=== PATIENT | female | born 1995 | race Caucasian/White ===

== ENCOUNTER 2018-10-17 20:47 | Emergency (ER) | payer BC ==
--- NOTE | 2018-10-17 21:14 | ERPHSYRPT ---
- History of Present Illness Time Seen by Provider: 10/17/18 21:07 Source: patient Exam Limitations: no limitations Patient Subjective Stated Complaint: pt states she has had temp of 99.6 today at home, cough and sore throat Triage Nursing Assessment: pt alert and oriented, asnwers questions approp. pt ambulatoryw ith steady gait ntoed. respriations nonlabored with lungs cta. skin pink warm and dry. Physician History: 23-year-old white female previously healthy who states that she is 8 weeks arrives with complaint of fever sore throat cough symptoms since this morning. She states she had some vomiting earlier which resolved. She is not short of breath has no chest pain no belly pain no other complaints. Past medical history is negative. Past surgical history negative. Timing/Duration: today Severity: mild Modifying Factors: Improves With: nothing Associated Symptoms: nausea, vomiting (what), No abdominal pain, No shortness of breath, No heartburn, No diaphoresis, No cough, No chills, No chest pain, No fever, No headaches, No loss of appetite, No malaise, No rash, No syncope, No seizure, No weakness Allergies/Adverse Reactions: No Known Drug Allergies Allergy (Verified 10/17/18 21:04) Hx Tetanus, Diphtheria Vaccination/Date Given: Yes Hx Influenza Vaccination/Date Given: No Hx Pneumococcal Vaccination/Date Given: No Immunizations Up to Date: Yes - Review of Systems Constitutional: Fever, No Chills Eyes: No Symptoms (he refused any treatment) Ears, Nose, & Throat: No Symptoms, Throat Pain, No Ear Pain, No Ear Discharge, No Hearing Changes, No Tinnitus, No Nose Pain, No Nose Congestion, No Nose Discharge, No Sinus Drainage, No Epistaxis, No Mouth Pain, No Mouth Swelling, No Loose Teeth, No Throat Swelling, No Hoarse, No Painful Swallowing, No Snoring , No Stridor Respiratory: Cough, No Cyanosis, No Dyspnea, No Dyspnea on Exertion (TUCKER), No Stridor, No Wheezing Cardiac: No Chest Pain, No Edema, No Syncope Abdominal/Gastrointestinal: Nausea, Vomiting, No Abdominal Pain, No Diarrhea, No Constipation, No Hematemesis, No Hematochezia, No Melena, No Dysphagia, No Appetite Changes Genitourinary Symptoms: No Dysuria Musculoskeletal: No Back Pain, No Neck Pain Skin: No Rash Neurological: No Dizziness, No Focal Weakness, No Sensory Changes Psychological: No Symptoms Endocrine: No Symptoms All Other Systems: Reviewed and Negative (the second liter for him) - Past Medical History Pertinent Past Medical History: No - Past Surgical History Past Surgical History: Yes Female Surgical History: Dilation & Curettage - Social History Smoking Status: Never smoker Exposure to second hand smoke: Yes Drug Use: none Patient Lives Alone: No - Female History Hx Last Menstrual Period: 08/21/18 Hx Now: Yes Gestational Age: 6 wks - Nursing Vital Signs Nursing Vital Signs: Initial Vital Signs Temperature 99.6 F 10/17/18 20:57 Pulse Rate 123 H 10/17/18 20:57 Respiratory Rate 18 10/17/18 20:57 Blood Pressure 131/83 10/17/18 20:57 O2 Sat by Pulse Oximetry 97 10/17/18 20:57 Pain Scale Pain Intensity 3 - Physical Exam General Appearance: no apparent distress, alert Eye Exam: PERRL/EOMI, eyes nml inspection Ears, Nose, Throat Exam: normal ENT inspection, TMs normal, pharynx normal, moist mucous membranes Neck Exam: normal inspection, non-tender, supple, full range of motion Respiratory Exam: normal breath sounds, lungs clear, No respiratory distress Cardiovascular Exam: regular rate/rhythm, normal heart sounds, normal peripheral pulses, capillary refill <2 sec Gastrointestinal/Abdomen Exam: soft, normal bowel sounds, No tenderness, No mass Back Exam: normal inspection, normal range of motion, No CVA tenderness, No vertebral tenderness Extremity Exam: normal inspection, normal range of motion, pelvis stable Neurologic Exam: alert, 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, cooperative, 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, normal mood/affect, nml cerebellar function, nml station & gait, sensation nml, No motor deficits Skin Exam: normal color, warm, dry, No rash Lymphatic Exam: No adenopathy SpO2 Interpretation: normal (97%) SpO2: 97 - Course Nursing assessment & vital signs reviewed: Yes Ordered Tests: Active Orders 24 hr Category Date Time Status CULTURE,URINE Stat Lab 10/17/18 21:20 Received HCG,QUALITATIVE URINE Stat Lab 10/17/18 22:04 Completed UA W/RFX UR CULTURE Stat Lab 10/17/18 21:20 Completed Medication Summary Discontinued Medications Generic Name Dose Route Start Last Admin Trade Name Freq PRN Reason Stop Dose Admin Acetaminophen 650 mg 10/17/18 22:18 Tylenol 325 Mg PO 10/17/18 22:19 STAT ONE Oseltamivir Phosphate 75 mg 10/17/18 22:18 Tamiflu 75mg Capsule PO 10/17/18 22:19 STAT ONE Lab/Rad Data: Laboratory Results 10/17/18 10/17/18 10/17/18 Range/Units 22:04 21:20 21:20 Urine Color YELLOW (YELLOW) Urine Appearance CLOUDY (CLEAR) Urine pH 8.0 (5-6) Ur Specific Tolar 1.021 (1.005-1.025) Urine Protein 30 (Negative) Urine Ketones NEGATIVE (NEGATIVE) Urine Blood NEGATIVE (0-5) John Paul/ul Urine Nitrite NEGATIVE (NEGATIVE) Urine Bilirubin NEGATIVE (NEGATIVE) Urine Urobilinogen NEGATIVE (0-1) mg/dL Ur Leukocyte Esterase LARGE (NEGATIVE) Urine WBC (Auto) 26-50 (0-5) /HPF Urine RBC (Auto) 26-50 (0-2) /HPF U Epithel Cells (Auto) FEW (FEW) /HPF Urine Bacteria (Auto) NONE (NEGATIVE) /HPF Urine Mucus (Auto) SLIGHT (NEGATIVE) /HPF Urine Culture Reflexed YES (NO) Urine Glucose NEGATIVE (NEGATIVE) mg/dL Urine HCG, Qual POSITIVE (Negative) Influenza Type A Ag POSITIVE (NEGATIVE) Influenza Type B Ag NEGATIVE (NEGATIVE) RSV (PCR) NEGATIVE (Negative) Group A Strep Antibody NEGATIVE (NEGATIVE) - Progress Progress: improved Progress Note: 10/17/18 22:19 Patient's flu swab was positive for influenza A strep is negative urine essentially negative patient is the patient is aware of this. Will go ahead and place patient on Tamiflu 75 mg orally twice a day for 5 days. Patient to drink plenty of fluids. Tylenol every 4 hours as needed for pain. Patient follow-up with her family doctor. - Departure Time of Disposition: 22:20 Departure Disposition: Home Clinical Impression: Influenza A, Incidental Condition: Fair Critical Care Time: No Referrals: DOCTOR,NO FAMILY [Primary Care Provider] - Additional Instructions: Return home. Plenty of fluids. Tylenol every 4 hours as needed for pain or temperature greater than 100.5. Tamiflu as directed. Follow-up with your family doctor. Return for acute distress or for severe symptoms. Prescriptions: Oseltamivir 75 mg [Tamiflu 75MG Capsule] 75 mg PO BID #10 cap
[2018-10-17 21:57] LABS: Appearance CLOUDY (CLEAR); Bilirubin NEGATIVE (NEGATIVE); Blood NEGATIVE Ery/ul (0-5); Epithelial Cells FEW /HPF (FEW); Glucose NEGATIVE (NEGATIVE); Ketones NEGATIVE (NEGATIVE); Leukocyte Esterase LARGE (NEGATIVE); Mucus SLIGHT /HPF (NEGATIVE); Nitrite NEGATIVE (NEGATIVE); Protein,Urine Dip 30 (Negative); RBC 26-50 /HPF (0-2); Specific Gravity 1.021 (1.005-1.025); Urobilinogen NEGATIVE mg/dL (0-1); WBC 26-50 /HPF (0-5)
[2018-10-17 22:00] LABS: INFLUENZA A POSITIVE (NEGATIVE); INFLUENZA B NEGATIVE (NEGATIVE); RESPIRATORY SYNCTIAL VIRUS NEGATIVE (Negative)
[2018-10-17 22:04] VITALS: BP 121/79; PULSE 98
[2018-10-17 22:10] LABS: Group A Strep NEGATIVE (NEGATIVE)
[2018-10-17] MEDS ORDERED: TYLENOL 325 MG PO ONE (22:18)
[2018-10-17] MEDS ORDERED: Tamiflu 75MG Capsule PO ONE ×2 (22:18→22:25)
[2018-10-17 22:22] VITALS: O2SAT 97
[2018-10-17] MEDS ORDERED: TYLENOL 325 MG ONE (22:25)
== END 2018-10-17 22:34 | disposition home or self-care (01) ==
LOC: ED 20:47
DX: J10.1 Influenza due to other identified influenza virus with other respiratory manifestations (principal); Z33.1 Pregnant state, incidental
CPT/HCPCS: 81001; 84703; 87086; 87631; 87651; 99283; A9270-GY

== ENCOUNTER 2019-12-23 21:26 | Emergency (ER) | payer BC, OTHER ==
[2019-12-23 21:43] VITALS: O2SAT 100
[2019-12-23] MEDS ORDERED: Reglan 10 MG/2 ML IM ONE (21:48)
[2019-12-23] MEDS ORDERED: BENADRYL 50 MG/ML IM ONE (21:48)
[2019-12-23] MEDS ORDERED: TORAdol 30 mg Injection IM ONE (21:48)
--- NOTE | 2019-12-23 21:50 | ERPHSYRPT ---
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 She has taken [id number] pain medication like Tylenol and have not felt much relief. Denies any focal numbness tingling or weakness. No difficulty speech. No visual symptoms. Headache is similar to previous episodes. Denies any neck stiffness or pain. No fever or chills reported. Timing/Duration: day(s) (2) Quality: sharpness Head Pain Location: frontal, temporal, parietal Severity of Pain-Max: moderate Severity of Pain-Current: moderate Recent Head Trauma: no recent headache/trauma Associated Symptoms: denies symptoms Previous symptoms: same symptoms as today Allergies/Adverse Reactions: No Known Drug Allergies Allergy (Verified 12/23/19 21:29) Hx Tetanus, Diphtheria Vaccination/Date Given: Yes Hx Influenza Vaccination/Date Given: No Hx Pneumococcal Vaccination/Date Given: No Travel Risk - International Travel Have you traveled outside of the country in past 3 weeks: No Have you or anyone close to you been diagnosed with or: No Do your reside in a community with a known COVID-19 case?: Yes If Yes where:: [place] - Coronavirus Screening Has patient experienced Coronavirus symptoms: No - Review of Systems Constitutional: No Symptoms Eyes: No Symptoms Ears, Nose, & Throat: No Symptoms Respiratory: No Symptoms Cardiac: No Symptoms Abdominal/Gastrointestinal: No Symptoms Genitourinary Symptoms: No Symptoms Musculoskeletal: No Symptoms Neurological: Headache Psychological: No Symptoms Endocrine: No Symptoms Hematologic/Lymphatic: No Symptoms Immunological/Allergic: No Symptoms - Past Medical History Pertinent Past Medical History: No Psycho-Social History: Depression - Past Surgical History Past Surgical History: Yes Female Surgical History: Dilation & Curettage - Social History Smoking Status: Current every day smoker Exposure to second hand smoke: Yes Drug Use: none Patient Lives Alone: Yes - Female History Hx Now: (unknown) - Nursing Vital Signs Nursing Vital Signs: Initial Vital Signs Temperature 98 F 12/23/19 21:30 Pulse Rate 56 L 12/23/19 21:30 Respiratory Rate 12 12/23/19 21:30 Blood Pressure 166/95 12/23/19 21:30 O2 Sat by Pulse Oximetry 100 12/23/19 21:30 Pain Scale Pain Intensity 5 - Physical Exam General Appearance: no apparent distress Eye Exam: PERRL/EOMI, eyes nml inspection Ears, Nose, Throat Exam: normal ENT inspection, TMs normal, pharynx normal Neck Exam: normal inspection, non-tender, supple, full range of motion Respiratory Exam: normal breath sounds, lungs clear Cardiovascular Exam: regular rate/rhythm, normal heart sounds, normal peripheral pulses Gastrointestinal/Abdominal Exam: soft, normal bowel sounds, No tenderness, No distention, No guarding Back Exam: normal inspection Extremity Exam: normal inspection, normal range of motion Mental Status Exam: alert, 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, cooperative auxiliary engineer Exam: normal hearing, normal speech, PERRL Coordination/Gait Exam: normal finger to nose, normal gait, normal cerebellar function Motor/Sensory Exam: no motor deficit, no sensory deficit, no pronator drift, negative Babinski's sign DTR Exam: bicep (R): 2+, bicep (L): 2+, knee (R): 2+, knee (L): 2+ Skin Exam: normal color SpO2 Interpretation: normal SpO2: 100 O2 Delivery: Room Air - Course Nursing assessment & vital signs reviewed: Yes Ordered Tests: Active Orders 24 hr Category Date Time Status Isolation, Initiate & Maintain Q4H Care 12/23/19 21:43 Active HCG,QUALITATIVE URINE Stat Lab 12/23/19 21:57 Completed Medication Summary Discontinued Medications Generic Name Dose Route Start Last Admin Trade Name Freq PRN Reason Stop Dose Admin Diphenhydramine HCl 50 mg 12/23/19 21:48 12/23/19 22:12 Benadryl 50 Mg/Ml IM 12/23/19 21:49 50 mg STAT ONE Administration Diphenhydramine HCl Confirm 12/23/19 22:04 Benadryl 50 Mg/Ml Administered 12/23/19 22:05 Dose 50 mg .ROUTE .STK-MED ONE Ketorolac Tromethamine 30 mg 12/23/19 21:48 12/23/19 22:15 Toradol 30 Mg Injection IM 12/23/19 21:49 30 mg STAT ONE Administration Ketorolac Tromethamine Confirm 12/23/19 22:04 Toradol 30 Mg Injection Administered 12/23/19 22:05 Dose 30 mg .ROUTE .STK-MED ONE Metoclopramide HCl 10 mg 12/23/19 21:48 12/23/19 22:10 Reglan 10 Mg/2 Ml IM 12/23/19 21:49 10 mg STAT ONE Administration Metoclopramide HCl Confirm 12/23/19 22:04 Reglan 10 Mg/2 Ml Administered 12/23/19 22:05 Dose 10 mg .ROUTE .STK-MED ONE Lab/Rad Data: Laboratory Results 12/23/19 Range/Units 21:57 Urine HCG, Qual NEGATIVE (Negative) - Progress Progress: improved, re-examined Air Movement: good Progress Note: 12/23/19 24 years old presented with right-sided migraine. She is given migraine cocktail with Toradol/Benadryl/Reglan, reevaluation her headache is completely improved. She has nonfocal neuro exam. Headache is similar to previous episodes. No signs of meningismus, I do not think she needs any work- up and is stable for discharge with outpatient follow-up for prophylactic medication and may need referral for neurology. Discussed signs symptoms of worsening needing return to ER which she seems understanding. Stable for discharge. Blood Culture(s) Obtained: No Antibiotics given: No Counseled pt/family regarding: diagnosis, need for follow-up - Departure Departure Disposition: Home Clinical Impression: Headache, migraine Qualifiers: Migraine type: unspecified Status migrainosus presence: without status migrainosus Intractability: not intractable Qualified Code(s): G43.909 - Migraine, unspecified, not intractable, without status migrainosus Condition: Stable Critical Care Time: No Referrals: DOCTOR,NO FAMILY [Primary Care Provider] - SHIREEN ALCAZAR [ACTIVE STAFF] - (1 to 2 days for reevaluation.) Instructions: Headache, Adult (DC) Additional Instructions: Take Tylenol/ibuprofen as needed. Follow-up with primary care for reevaluation and may need referral for neurology if it does not get better or needs to be placed on prophylactic medication. Return to ER for intractable headache, numbness tingling weakness focally, visual symptoms, difficulty speech etc. Prescriptions: Ibuprofen 600 mg PO Q6HPRN PRN 10 Days #20 tablet PRN Reason: Pain
[2019-12-23] MEDS ORDERED: Reglan 10 MG/2 ML ONE (22:04)
[2019-12-23] MEDS ORDERED: BENADRYL 50 MG/ML ONE (22:04)
[2019-12-23] MEDS ORDERED: TORAdol 30 mg Injection ONE (22:04)
[2019-12-23 22:59] VITALS: BP 134/78; PULSE 79
== END 2019-12-23 22:59 | disposition home or self-care (01) ==
LOC: ED 21:26
DX: G43.909 Migraine, unspecified, not intractable, without status migrainosus (principal)
CPT/HCPCS: 84703; 96372; 99284; J1200; J1885

== ENCOUNTER 2020-01-08 00:51 | Emergency (ER) | payer BC ==
[2020-01-08 01:12] VITALS: O2SAT 96
--- NOTE | 2020-01-08 01:21 | ERPHSYRPT ---
- History of Present Illness Source: patient Exam Limitations: no limitations Patient Subjective Stated Complaint: "I fell out of my boyfriend's truck. It wasn't moving. Now my hand, ribs, and back hurt." Triage Nursing Assessment: Pt presented alert et oriented x3 answering questions appropriately. Pt ambulated to room without complications or assistance. Pt reported that around 1800 she fell out of the bed of a truck. Pt reported the truck was not moving. Pt denied striking her head or any loss of consciousness. Pupils 3mm reactive. Pt denied headache, dizziness, visual/ auditory disturbances. Neck supple non-tender. Symmetrical chest expansion. Lungs clear with adequate airflow. Full ROM noted throghout all extremities. Tenderness noted to right ribs/back. No noted contusions, abrasions, hematomas. Physician History: 24 yo wf fell out of the bed of [employer] truck bed 9 hrs before arrival. She denies LOC/SUN/cervical pain/abdominal pain/. Pain is rated 5/10. Method of Injury: fall (Out of stationary truck bed) Occurred: other (9hrs before arrival) Where Injury Occurred: street Loss of Consciousness: no loss of consciousness Pain Location: chest, back, other (R 4th digit) Severity of Pain-Max: moderate Severity of Pain-Current: moderate Modifying Factors: Improves With: nothing Associated Symptoms: back pain, extremity injury, No shortness of breath Allergies/Adverse Reactions: No Known Drug Allergies Allergy (Verified 01/08/20 00:56) Hx Tetanus, Diphtheria Vaccination/Date Given: Yes Hx Influenza Vaccination/Date Given: Yes Hx Pneumococcal Vaccination/Date Given: No Travel Risk - International Travel Have you traveled outside of the country in past 3 weeks: No Have you or anyone close to you been diagnosed with or: No Do your reside in a community with a known COVID-19 case?: Yes If Yes where:: [facility] - Coronavirus Screening Has patient experienced Coronavirus symptoms: No - Review of Systems Constitutional: No Symptoms Eyes: No Symptoms Ears, Nose, & Throat: No Symptoms Respiratory: No Symptoms Cardiac: No Symptoms Abdominal/Gastrointestinal: No Symptoms Genitourinary Symptoms: No Symptoms Musculoskeletal: Injury (R 4th digit) Neurological: No Symptoms Psychological: No Symptoms Endocrine: No Symptoms Hematologic/Lymphatic: No Symptoms Immunological/Allergic: No Symptoms - Past Medical History Pertinent Past Medical History: No Neurological History: No Pertinent History ENT History: No Pertinent History Cardiac History: No Pertinent History Respiratory History: No Pertinent History Endocrine Medical History: No Pertinent History Musculoskeletal History: No Pertinent History GI Medical History: No Pertinent History History: No Pertinent History Psycho-Social History: Depression Female Reproductive Disorders: No Pertinent History - Past Surgical History Past Surgical History: Yes Neuro Surgical History: No Pertinent History Cardiac: No Pertinent History Respiratory: No Pertinent History Gastrointestinal: No Pertinent History Genitourinary: No Pertinent History Musculoskeletal: No Pertinent History Female Surgical History: Dilation & Curettage - Social History Smoking Status: Current every day smoker How long have you smoked: 3 years Exposure to second hand smoke: Yes Drug Use: none Patient Lives Alone: No Significant Family History: no pertinent family hx - Female History Hx Last Menstrual Period: 12/15/19 Hx Now: No Physical Exam - Nursing Vital Signs Nursing Vital Signs: Initial Vital Signs Temperature 98 F 01/08/20 00:52 Pulse Rate 78 01/08/20 00:52 Respiratory Rate 18 01/08/20 00:52 Blood Pressure 140/79 01/08/20 00:52 O2 Sat by Pulse Oximetry 96 01/08/20 00:52 Pain Scale Pain Intensity 5 - Tyrone Coma Score Best Eye Response (Blossom): (4) open spontaneously Best Verbal Response (Blossom): (5) oriented Best Motor Response (Blossom): (6) obeys commands Blossom Total: 15 - Physical Exam General Appearance: no apparent distress, other (Pt talking on cell phone and laughing upon entering room) Eye Exam: bilateral eye: normal inspection, PERRL, EOMI ENT Exam: airway nml, No evidence of ENT injury Neck Exam: supple, trachea midline (C-spine nttp) Respiratory/Chest Exam: chest tenderness, normal breath sounds Cardiovascular Exam: normal heart sounds, regular rate/rhythm Gastrointestinal Exam: soft, normal bowel sounds, No tenderness Back Exam: vertebral tenderness (Mid L-spine) Extremity Exam: pelvis stable, other (Mild ttp R 4th digit wo edema/deformity/ ecchymosis) SpO2: 96 - Course Nursing assessment & vital signs reviewed: Yes - Radiology Exams Hand X-ray Interpretation: Interpreted by me (4th digit distal phalanyx fx) - CT Exams Chest CT Interpretation: Negative, Tele-radiologist Report Lumbar Spine CT Interpretation: Negative, Tele-radiologist Report Ordered Tests: Active Orders 24 hr Category Date Time Status CHEST WITHOUT CONTRAST [CT] Stat Exams 01/08/20 01:06 Taken HAND (MINIMUM 3 VIEWS) Stat Exams 01/08/20 01:42 Taken LUMBAR SPINE W/O [CT] Stat Exams 01/08/20 01:06 Taken - Progress Progress: improved Progress Note: 01/08/20 01:57 Splint R 4th digit per nurse/NVI Pt refused IM pain meds Counseled pt/family regarding: rad results - Departure Departure Disposition: Home Clinical Impression: Avulsion fracture of distal phalanx of finger, Chest wall contusion, Lumbar strain Condition: Stable Critical Care Time: No Referrals: DOCTOR,NO FAMILY [Primary Care Provider] - Instructions: Finger Fracture (DC), Back Muscle Strain (DC), Contusion (DC) Additional Instructions: Ice for 122-24 hours to contused areas Motrin/tylenol for pain Follow up with family MD about fractured finger Return to ER as needed
[2020-01-08 02:06] VITALS: BP 130/80; PULSE 58
--- NOTE | 2020-01-08 09:36 | XRAY ---
Indication: Pain following fall. Comparison: None 3 view right hand demonstrates nondisplaced distal 4th phalanx shaft fracture. Incidental 5-6 mm ulnar negative variance commonly associated with Kienbok's disease and ulnar impingement syndrome. Remaining hand unremarkable.
--- NOTE | 2020-01-08 09:38 | XRAY ---
Indication: Right-sided pain following fall. Multiple contiguous axial images obtained through the lumbar spine. Sagittal and coronal reformatted images obtained. Comparison: None. Axial images negative for acute fracture, suspicious bony lesions, or spinal canal stenosis. Bilateral L5 spondylolysis. Small multilevel thoracolumbar Schmorl nodes. Sagittal and coronal reformatted images demonstrates normal alignment with vertebral body height/disc spaces maintained. No acute compression fracture or subluxation. Visualized noncontrasted soft tissues unremarkable. Impression: 1. L5 spondylolysis without spondylolisthesis and multilevel Schmorl nodes. 2. Remaining CT lumbar spine is negative. Comment: Preliminary interpretation was made by [facility]. No critical discrepancy.
--- NOTE | 2020-01-08 09:38 | XRAY ---
Indication: Right-sided pain following fall. Multiple contiguous axial images obtained through the chest without contrast as ordered. Comparison: None. Lungs are inflated and clear. Heart is not enlarged. Aorta is normal in course and caliber. No pathologic mediastinal lymphadenopathy. Bony thorax intact. Limited upper abdomen unremarkable. Impression: CT chest without contrast exam is negative. Comment: Preliminary interpretation was made by [facility]. No critical discrepancy.
== END 2020-01-08 02:13 | disposition home or self-care (01) ==
LOC: ED 00:51
DX: S62.634A Displaced fracture of distal phalanx of right ring finger, initial encounter for closed fracture (principal); W17.89XA Other fall from one level to another, initial encounter; S20.219A Contusion of unspecified front wall of thorax, initial encounter; S39.012A Strain of muscle, fascia and tendon of lower back, initial encounter; Z72.0 Tobacco use
CPT/HCPCS: 71250; 72131; 73130; 99284

== ENCOUNTER 2020-01-12 19:33 | Emergency (ER) | payer BC ==
--- NOTE | 2020-01-12 19:48 | ERPHSYRPT ---
- History of Present Illness Time Seen by Provider: 01/12/20 19:48 Source: patient Exam Limitations: no limitations Physician History: This is a 24-year-old white female who 2 days ago took a test and it was faintly positive. Patient's last menstrual period prior to checking her test was approximately 3 weeks ago. Yesterday, she noticed a light spotting and bleeding. Today the bleeding was more significant. Patient states she denies weakness, she denies dizziness, she denies significant abdominal pain, and she denies shortness of air. Patient is here to obtain an evaluation of the significant vaginal bleeding. It is more than her typical menstrual cycle bleeding. Timing/Duration: today, worse Activites at Onset: none Quality: cramping (Very mild suprapubic cramping) Onset Location: suprapubic Pain Radiation: none Severity of Pain-Max: mild Severity of Pain-Current: mild Prior abdominal problems: none Sexual intercourse history: single partner Modifying Factors: Improves With: nothing Associated Symptoms: vaginal discharge (Bleeding), No abdominal pain, No fever, No chills, No nausea, No vomiting, No dysuria, No lower back pain Allergies/Adverse Reactions: No Known Drug Allergies Allergy (Verified 01/12/20 19:59) Home Medications: No Reportable Medications [No Reported Medications] 01/12/20 [History] Hx Tetanus, Diphtheria Vaccination/Date Given: Yes Hx Influenza Vaccination/Date Given: Yes Hx Pneumococcal Vaccination/Date Given: No Travel Risk - International Travel Have you traveled outside of the country in past 3 weeks: No Have you or anyone close to you been diagnosed with or: No Do your reside in a community with a known COVID-19 case?: Yes If Yes where:: [facility] - Coronavirus Screening Has patient experienced Coronavirus symptoms: No - Review of Systems Constitutional: No Symptoms Eyes: No Symptoms Ears, Nose, & Throat: No Symptoms Respiratory: No Symptoms Cardiac: No Symptoms Abdominal/Gastrointestinal: No Abdominal Pain, No Nausea, No Vomiting, No Diarrhea Genitourinary Symptoms: Vaginal Bleeding Musculoskeletal: No Symptoms Skin: No Symptoms Neurological: No Symptoms Psychological: No Symptoms Endocrine: No Symptoms Hematologic/Lymphatic: No Symptoms Immunological/Allergic: No Symptoms All Other Systems: Reviewed and Negative - Past Medical History Pertinent Past Medical History: No Neurological History: No Pertinent History ENT History: No Pertinent History Cardiac History: No Pertinent History Respiratory History: No Pertinent History Endocrine Medical History: No Pertinent History Musculoskeletal History: No Pertinent History GI Medical History: No Pertinent History History: No Pertinent History Psycho-Social History: Depression Female Reproductive Disorders: No Pertinent History - Past Surgical History Past Surgical History: Yes Neuro Surgical History: No Pertinent History Cardiac: No Pertinent History Respiratory: No Pertinent History Gastrointestinal: No Pertinent History Genitourinary: No Pertinent History Musculoskeletal: No Pertinent History Female Surgical History: Dilation & Curettage - Social History Smoking Status: Current every day smoker How long have you smoked: 3 years Exposure to second hand smoke: Yes Drug Use: none Patient Lives Alone: No Significant Family History: no pertinent family hx - Nursing Vital Signs Nursing Vital Signs: Initial Vital Signs Temperature 98.3 F 01/12/20 19:42 Pulse Rate 78 01/12/20 19:42 Respiratory Rate 16 01/12/20 19:42 Blood Pressure 126/92 01/12/20 19:42 O2 Sat by Pulse Oximetry 100 01/12/20 19:42 Pain Scale Pain Intensity 5 - Physical Exam General Appearance: no apparent distress, alert, anxiety Eye Exam: PERRL/EOMI, eyes nml inspection Ears, Nose, Throat Exam: normal ENT inspection, moist mucous membranes Neck Exam: normal inspection, non-tender, supple, full range of motion Respiratory Exam: normal breath sounds, lungs clear, airway intact, No chest tenderness, No respiratory distress Cardiovascular Exam: regular rate/rhythm, normal heart sounds, normal peripheral pulses Gastrointestinal/Abdomen Exam: soft, normal bowel sounds, No tenderness, No guarding, No rebound Pelvic Exam: not done Rectal Exam: not done Back Exam: normal inspection, normal range of motion, No CVA tenderness, No vertebral tenderness Extremity Exam: normal inspection, normal range of motion, pelvis stable Neurologic Exam: alert, 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, cooperative, hand sewer II-XII nml as tested Skin Exam: normal color, warm, dry Lymphatic Exam: No adenopathy SpO2 Interpretation: normal O2 Delivery: Room Air - Course Nursing assessment & vital signs reviewed: Yes Ordered Tests: Active Orders 24 hr Category Date Time Status Isolation, Initiate & Maintain Q4H Care 01/12/20 19:58 Active CBC W DIFF Stat Lab 01/12/20 20:20 Completed CMP Stat Lab 01/12/20 20:20 Completed CULTURE,URINE Stat Lab 01/12/20 20:20 Received HCG, Quantitative (Inhouse) Stat Lab 01/12/20 20:20 Received HCG,QUALITATIVE URINE Stat Lab 01/12/20 20:20 Completed UA W/RFX UR CULTURE Stat Lab 01/12/20 20:20 Completed Lab/Rad Data: Laboratory Result Diagrams 01/12/20 20:20 01/12/20 20:20 Laboratory Results 01/12/20 01/12/20 01/12/20 Range/Units 20:20 20:20 20:20 WBC (4.0-10.5) K/mm3 RBC (4.1-5.4) M/mm3 Hgb (12.0-16.0) gm/dl Hct (35-47) % MCV (78-100) fl MCH (26-32) pg MCHC (32-36) g/dl RDW (11.5-14.0) % Plt Count (150-450) K/mm3 MPV (7.5-11.0) fl Gran % (36.0-66.0) % Eos # (Auto) (0-0.5) Absolute Lymphs (auto) (1.0-4.6) Absolute Monos (auto) (0.0-1.3) Lymphocytes % (24.0-44.0) % Monocytes % (0.0-12.0) % Eosinophils % (0.00-5.0) % Basophils % (0.0-0.4) % Absolute Granulocytes (1.4-6.9) Basophils # (0-0.4) Sodium 142 (137-145) mmol/L Potassium 3.8 (3.5-5.1) mmol/L Chloride 107 (98-107) mmol/L Carbon Dioxide 26 (22-30) mmol/L Anion Gap 13.5 (5-15) MEQ/L BUN 9 (7-17) mg/dL Creatinine 0.65 (0.52-1.04) mg/dL Estimated GFR > 60.0 ML/MIN Glucose 89 (74-106) mg/dL Calcium 9.5 (8.4-10.2) mg/dL Total Bilirubin 0.50 (0.2-1.3) mg/dL AST 22 (14-36) U/L ALT 14 (0-35) U/L Alkaline Phosphatase 75 (38-126) U/L Serum Total Protein 7.9 (6.3-8.2) g/dL Albumin 4.3 (3.5-5.0) g/dL Urine Color YELLOW (YELLOW) Urine Appearance SLIGHTLY CLOUDY (CLEAR) Urine pH 6.0 (5-6) Ur Specific [place] 1.028 (1.005-1.025) Urine Protein 30 (Negative) Urine Ketones NEGATIVE (NEGATIVE) Urine Blood LARGE (0-5) John Paul/ul Urine Nitrite NEGATIVE (NEGATIVE) Urine Bilirubin NEGATIVE (NEGATIVE) Urine Urobilinogen 2 (0-1) mg/dL Ur Leukocyte Esterase NEGATIVE (NEGATIVE) Urine WBC (Auto) NONE (0-5) /HPF Urine RBC (Auto) >101 (0-2) /HPF U Epithel Cells (Auto) NONE (FEW) /HPF Urine Bacteria (Auto) NONE (NEGATIVE) /HPF Urine Mucus (Auto) SLIGHT (NEGATIVE) /HPF Urine Culture Reflexed YES (NO) Urine Glucose NEGATIVE (NEGATIVE) mg/dL Urine HCG, Qual NEGATIVE (Negative) 01/12/20 Range/Units 20:20 WBC 8.2 (4.0-10.5) K/mm3 RBC 4.27 (4.1-5.4) M/mm3 Hgb 12.8 (12.0-16.0) gm/dl Hct 39.9 (35-47) % MCV 93.4 (78-100) fl MCH 30.0 (26-32) pg MCHC 32.1 (32-36) g/dl RDW 13.9 (11.5-14.0) % Plt Count 302 (150-450) K/mm3 MPV 9.8 (7.5-11.0) fl Gran % 69.7 H (36.0-66.0) % Eos # (Auto) 0.30 (0-0.5) Absolute Lymphs (auto) 1.59 (1.0-4.6) Absolute Monos (auto) 0.60 (0.0-1.3) Lymphocytes % 19.3 L (24.0-44.0) % Monocytes % 7.3 (0.0-12.0) % Eosinophils % 3.6 (0.00-5.0) % Basophils % 0.1 (0.0-0.4) % Absolute Granulocytes 5.72 (1.4-6.9) Basophils # 0.01 (0-0.4) Sodium (137-145) mmol/L Potassium (3.5-5.1) mmol/L Chloride (98-107) mmol/L Carbon Dioxide (22-30) mmol/L Anion Gap (5-15) MEQ/L BUN (7-17) mg/dL Creatinine (0.52-1.04) mg/dL Estimated GFR ML/MIN Glucose (74-106) mg/dL Calcium (8.4-10.2) mg/dL Total Bilirubin (0.2-1.3) mg/dL AST (14-36) U/L ALT (0-35) U/L Alkaline Phosphatase (38-126) U/L Serum Total Protein (6.3-8.2) g/dL Albumin (3.5-5.0) g/dL Urine Color (YELLOW) Urine Appearance (CLEAR) Urine pH (5-6) Ur Specific [place] (1.005-1.025) Urine Protein (Negative) Urine Ketones (NEGATIVE) Urine Blood (0-5) John Paul/ul Urine Nitrite (NEGATIVE) Urine Bilirubin (NEGATIVE) Urine Urobilinogen (0-1) mg/dL Ur Leukocyte Esterase (NEGATIVE) Urine WBC (Auto) (0-5) /HPF Urine RBC (Auto) (0-2) /HPF U Epithel Cells (Auto) (FEW) /HPF Urine Bacteria (Auto) (NEGATIVE) /HPF Urine Mucus (Auto) (NEGATIVE) /HPF Urine Culture Reflexed (NO) Urine Glucose (NEGATIVE) mg/dL Urine HCG, Qual (Negative) - Progress Progress: unchanged Air Movement: good Blood Culture(s) Obtained: No Antibiotics given: No Counseled pt/family regarding: lab results, diagnosis, need for follow-up - Departure Departure Disposition: Home Clinical Impression: Vaginal bleeding Condition: Stable Critical Care Time: No Referrals: DOCTOR,NO FAMILY [Primary Care Provider] - Additional Instructions: Drink plenty of fluids. Call your primary care physician or portable feed mill operator for further evaluation and management. Return to the emergency department if symptoms are worsening.
[2020-01-12 19:58] VITALS: O2SAT 100
[2020-01-12 20:30] LABS: Absolute Neutrophil Ct (ANC) 5.72 (1.4-6.9); BASOPHIL % 0.1 % (0.0-0.4); Basophil (Absolute #) 0.01 (0-0.4); Eosinophil % 3.6 % (0.00-5.0); Hematocrit 39.9 % (35-47); Hemoglobin 12.8 gm/dl (12.0-16.0); Lymphocyte (Absolute #) 1.59 (1.0-4.6); Lymphocytes % 19.3 % (24.0-44.0); Mean Cell Volume 93.4 fl (78-100); Mean Corpuscular Hgb Concent. 32.1 g/dl (32-36); Mean Platelet Volume 9.8 fl (7.5-11.0); Monocytes % 7.3 % (0.0-12.0); Neutrophil % 69.7 % (36.0-66.0); Platelet Count 302 K/mm3 (150-450); Red Blood Count 4.27 M/mm3 (4.1-5.4); Red Cell Distribution Width 13.9 % (11.5-14.0); White Blood Count 8.2 K/mm3 (4.0-10.5)
[2020-01-12 20:51] LABS: ALBUMIN 4.3 g/dL (3.5-5.0); ALKALINE PHOSPHATASE 75 U/L (38-126); ANION GAP 13.5 MEQ/L (5-15); BLOOD UREA NITROGEN 9 mg/dL (7-17); CHLORIDE 107 mmol/L (98-107); Calcium 9.5 mg/dL (8.4-10.2); Carbon Dioxide 26 mmol/L (22-30); Creatinine 1 0.65 mg/dL (0.52-1.04); Glucose 89 mg/dL (74-106); Potassium 3.8 mmol/L (3.5-5.1); SGOT/AST 22 U/L (14-36); SGPT/ALT 14 U/L (0-35); SODIUM 142 mmol/L (137-145); Total Protein 7.9 g/dL (6.3-8.2)
[2020-01-12 20:53] LABS: Appearance SLIGHTLY CLOUDY (CLEAR); Bilirubin NEGATIVE (NEGATIVE); Blood LARGE Ery/ul (0-5); Glucose NEGATIVE (NEGATIVE); Ketones NEGATIVE (NEGATIVE); Leukocyte Esterase NEGATIVE (NEGATIVE); Mucus SLIGHT /HPF (NEGATIVE); Nitrite NEGATIVE (NEGATIVE); Protein,Urine Dip 30 (Negative); Specific Gravity 1.028 (1.005-1.025); Urobilinogen 2 mg/dL (0-1)
[2020-01-12 20:55] LABS: RBC >101 /HPF (0-2)
[2020-01-12 21:26] VITALS: BP 119/85; PULSE 74
== END 2020-01-12 21:26 | disposition home or self-care (01) ==
LOC: ED 19:33
DX: O46.91 Antepartum hemorrhage, unspecified, first trimester (principal); Z3A.00 Weeks of gestation of pregnancy not specified
CPT/HCPCS: 36415; 80053; 81001; 84702; 84703; 85025; 87086; 99283

== ENCOUNTER 2020-02-06 03:40 | Emergency (ER) | payer BC ==
[2020-02-06] MEDS ORDERED: TORAdol 30 mg Injection ONE (03:45)
[2020-02-06] MEDS ORDERED: TORAdol 30 mg Injection IM ONE (03:46)
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
[2020-02-06] MEDS ORDERED: Augmentin 875-125 Tablet PO ONE (05:46)
[2020-02-06] MEDS ORDERED: Augmentin 875-125 Tablet ONE (05:50)
[2020-02-06 06:05] VITALS: BP 124/69; PULSE 81; O2SAT 100
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
== END 2020-02-06 06:05 | disposition home or self-care (01) ==
LOC: ED 03:40
DX: S00.83XA Contusion of other part of head, initial encounter (principal); S00.551A Superficial foreign body of lip, initial encounter; Y08.09XA Assault by strike by other specified type of sport equipment, initial encounter; Y92.9 Unspecified place or not applicable; R51 Headache; Z72.0 Tobacco use
CPT/HCPCS: 70150; 70450; 70486; 84703; 96372; 99284; J1885; A9270-GY

== ENCOUNTER 2020-03-01 01:51 | Emergency (ER) | payer BC ==
[2020-03-01 02:08] VITALS: O2SAT 100
[2020-03-01] MEDS ORDERED: TORAdol 30 mg Injection IM ONE (02:22)
[2020-03-01] MEDS ORDERED: ZOFRAN ODT 4 MG PO ONE (02:30)
[2020-03-01] MEDS ORDERED: TORAdol 30 mg Injection ONE (02:31)
[2020-03-01] MEDS ORDERED: ZOFRAN ODT 4 MG ONE (02:31)
--- NOTE | 2020-03-01 02:32 | ERPHSYRPT ---
- History of Present Illness Time Seen by Provider: 03/01/20 02:10 Source: patient Exam Limitations: no limitations Patient Subjective Stated Complaint: pt states she has had a migraine for last 2 days and has been vomiting for 2 days. states pain is in frontal area Triage Nursing Assessment: pt alert and oriented, answers questions approp. pt ambulatory with steady gait noted. respirations nonlabored with lungs cta. skin pink warm and dry. pupils equal and reactive. bilat upper and lower ext strength equal andl wnl. Physician History: 24 years old female with history of migraine presented in the ER with frontal h eadache for the last 2 days, gradual onset, moderate intensity, without any significant aggravating or relieving factors. Not associated with any blurry vision, numbness tingling or focal weakness. Does have associated nausea and vomiting. Patient reports symptoms similar to her previous migraines. Does not think this is the worst headache of her life. Patient is worried about being . Timing/Duration: day(s) (2), gradual onset, worse Quality: sharpness Head Pain Location: frontal Severity of Pain-Max: moderate Severity of Pain-Current: moderate Recent Head Trauma: no recent headache/trauma Associated Symptoms: nausea/vomiting, No fatigue, No facial pain, No light- headedness, No nasal drainage, No neck pain, No sinus infection, No sensitive to light Previous symptoms: same symptoms as today Allergies/Adverse Reactions: No Known Drug Allergies Allergy (Verified 03/01/20 02:17) Home Medications: No Reportable Medications [No Reported Medications] 03/01/20 [History] Hx Tetanus, Diphtheria Vaccination/Date Given: Yes Hx Influenza Vaccination/Date Given: No Hx Pneumococcal Vaccination/Date Given: No Immunizations Up to Date: Yes Travel Risk - International Travel Have you traveled outside of the country in past 3 weeks: No - Coronavirus Screening Are you exhibiting any of the following symptoms?: No Close contact with a COVID-19 positive Pt in past 14-21 Days: No - Review of Systems Constitutional: No Symptoms Eyes: No Symptoms Ears, Nose, & Throat: No Symptoms Respiratory: No Symptoms Cardiac: No Symptoms Abdominal/Gastrointestinal: No Symptoms Genitourinary Symptoms: No Symptoms Musculoskeletal: No Symptoms Skin: No Symptoms Neurological: Headache Psychological: No Symptoms Endocrine: No Symptoms Hematologic/Lymphatic: No Symptoms Immunological/Allergic: No Symptoms - Past Medical History Pertinent Past Medical History: No Neurological History: No Pertinent History ENT History: No Pertinent History Cardiac History: No Pertinent History Respiratory History: No Pertinent History Endocrine Medical History: No Pertinent History Musculoskeletal History: No Pertinent History GI Medical History: No Pertinent History History: No Pertinent History Psycho-Social History: Depression Female Reproductive Disorders: No Pertinent History - Past Surgical History Past Surgical History: Yes Neuro Surgical History: No Pertinent History Cardiac: No Pertinent History Respiratory: No Pertinent History Gastrointestinal: No Pertinent History Genitourinary: No Pertinent History Musculoskeletal: No Pertinent History Female Surgical History: Dilation & Curettage - Social History Smoking Status: Current every day smoker How long have you smoked: 5 years Exposure to second hand smoke: Yes Drug Use: none Patient Lives Alone: No Significant Family History: no pertinent family hx - Female History Hx Last Menstrual Period: february 10 Hx Now: No (unsure) - Nursing Vital Signs Nursing Vital Signs: Initial Vital Signs Pulse Rate 64 03/01/20 01:59 Respiratory Rate 16 03/01/20 01:59 Blood Pressure 129/71 03/01/20 01:59 O2 Sat by Pulse Oximetry 100 03/01/20 01:59 Pain Scale Pain Intensity 4 - Physical Exam General Appearance: no apparent distress, alert Eye Exam: PERRL/EOMI, eyes nml inspection Ears, Nose, Throat Exam: normal ENT inspection, TMs normal, pharynx normal Neck Exam: normal inspection, non-tender, supple, full range of motion Respiratory Exam: normal breath sounds, lungs clear Cardiovascular Exam: regular rate/rhythm, normal heart sounds Gastrointestinal/Abdominal Exam: soft, normal bowel sounds, No tenderness Back Exam: normal inspection, normal range of motion Extremity Exam: normal inspection, normal range of motion Mental Status Exam: alert, 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, 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 Exam: normal hearing, normal speech, PERRL Coordination/Gait Exam: normal finger to nose, normal gait, normal cerebellar function, negative Romberg's sign Motor/Sensory Exam: no motor deficit, no sensory deficit, no pronator drift, negative Babinski's sign DTR Exam: bicep (R): 2+, bicep (L): 2+, knee (R): 2+, knee (L): 2+ Skin Exam: normal color SpO2 Interpretation: normal SpO2: 100 O2 Delivery: Room Air Ordered Tests: Active Orders 24 hr Category Date Time Status HCG,QUALITATIVE URINE Stat Lab 03/01/20 02:23 Ordered Medication Summary Discontinued Medications Generic Name Dose Route Start Last Admin Trade Name Sagrario PRN Reason Stop Dose Admin Ketorolac Tromethamine 30 mg 03/01/20 02:22 Toradol 30 Mg Injection IM 03/01/20 02:23 STAT ONE - Progress Progress: improved, re-examined Air Movement: good Progress Note: 03/01/20 24 years old is evaluated for frontal headache. She has no neck stiffness/rigidity. No fever or chills. Headache is similar to previous episodes. Does not think the worst headache of her life. She is given Toradol and Zofran, on reevaluation feeling better. Did not think she needed to be able to go echo and is stable for discharge with outpatient follow-up. Discussed signs symptoms of worsening needing return to ER which she seems understanding. Blood Culture(s) Obtained: No Antibiotics given: No Counseled pt/family regarding: diagnosis, need for follow-up - Departure Clinical Impression: Headache, migraine Qualifiers: Migraine type: unspecified Status migrainosus presence: without status migrainosus Intractability: not intractable Qualified Code(s): G43.909 - Migraine, unspecified, not intractable, without status migrainosus Condition: Stable Critical Care Time: No Referrals: DOCTOR,NO FAMILY [Primary Care Provider] - DAVON BUCHANAN [ACTIVE STAFF] - Follow Up with PCP/3 days Instructions: Headache, Adult (DC) Additional Instructions: Take Tylenol/ibuprofen as needed. Follow-up with primary care for evaluation. Return to ER for any worsening.
[2020-03-01 03:10] VITALS: BP 135/72; PULSE 63
== END 2020-03-01 03:13 | disposition home or self-care (01) ==
LOC: ED 01:51
DX: G43.909 Migraine, unspecified, not intractable, without status migrainosus (principal); R11.2 Nausea with vomiting, unspecified
CPT/HCPCS: 84703; 96372; 99283; J1885; Q0162

== ENCOUNTER 2020-03-16 19:20 | Emergency (ER) | payer BC ==
--- NOTE | 2020-03-16 19:35 | ERPHSYRPT ---
- History of Present Illness Time Seen by Provider: 03/16/20 19:35 Source: patient Exam Limitations: no limitations Physician History: This is a right-handed 24-year-old white female who tripped and fell this morning hyperextending the second and third digits of her right hand. Fingers feel numb and tender. Occurred: this morning Quality: other (Numbness and tenderness to the) Severity of Pain-Max: mild (second third digits of the right hand) Severity of Pain-Current: mild Extremities Pain Location: hand: right, 2nd finger: right, 3rd finger: right Associated Symptoms: none Allergies/Adverse Reactions: ibuprofen Adverse Reaction (Intermediate, Verified 03/16/20 19:29) high fever and pass out Home Medications: No Reportable Medications [No Reported Medications] 03/01/20 [History] Hx Tetanus, Diphtheria Vaccination/Date Given: Yes Hx Influenza Vaccination/Date Given: No Hx Pneumococcal Vaccination/Date Given: No Travel Risk - International Travel Have you traveled outside of the country in past 3 weeks: No - Coronavirus Screening Are you exhibiting any of the following symptoms?: No Close contact with a COVID-19 positive Pt in past 14-21 Days: No - Review of Systems Constitutional: No Symptoms Eyes: No Symptoms Ears, Nose, & Throat: No Symptoms Respiratory: No Symptoms Cardiac: No Symptoms Abdominal/Gastrointestinal: No Symptoms Genitourinary Symptoms: No Symptoms Musculoskeletal: Fall, Injury (Right hand digits 2 and 3) Skin: No Symptoms Neurological: No Symptoms Psychological: No Symptoms Endocrine: No Symptoms Hematologic/Lymphatic: No Symptoms Immunological/Allergic: No Symptoms All Other Systems: Reviewed and Negative - Past Medical History Pertinent Past Medical History: No Neurological History: No Pertinent History ENT History: No Pertinent History Cardiac History: No Pertinent History Respiratory History: No Pertinent History Endocrine Medical History: No Pertinent History Musculoskeletal History: No Pertinent History GI Medical History: No Pertinent History History: No Pertinent History Psycho-Social History: Depression Female Reproductive Disorders: No Pertinent History - Past Surgical History Past Surgical History: Yes Neuro Surgical History: No Pertinent History Cardiac: No Pertinent History Respiratory: No Pertinent History Gastrointestinal: No Pertinent History Genitourinary: No Pertinent History Musculoskeletal: No Pertinent History Female Surgical History: Dilation & Curettage - Social History Smoking Status: Current every day smoker How long have you smoked: 5 years Exposure to second hand smoke: Yes Drug Use: none Patient Lives Alone: No Significant Family History: no pertinent family hx - Nursing Vital Signs Nursing Vital Signs: Initial Vital Signs Temperature 96.7 F 03/16/20 19:21 Pulse Rate 75 03/16/20 19:21 Respiratory Rate 16 03/16/20 19:21 Blood Pressure 121/59 03/16/20 19:21 O2 Sat by Pulse Oximetry 97 03/16/20 19:21 Pain Scale Pain Intensity 4 - Physical Exam General Appearance: no apparent distress, alert, anxiety Eyes, Ears, Nose, Throat Exam: normal ENT inspection, moist mucous membranes Neck Exam: normal inspection, non-tender, supple, full range of motion Cardiovascular/Respiratory Exam: chest non-tender Abdominal Exam: non-tender Back Exam: normal inspection, normal range of motion, No CVA tenderness, No vertebral tenderness Shoulder Exam: normal inspection, non-tender, no evidence of injury, normal ROM Elbow/Forearm Exam: normal inspection, non-tender, no evidence of injury, normal ROM Wrist Exam: normal inspection, non-tender, no evidence of injury, normal ROM Hand Exam: no evidence of injury, normal ROM, soft tissue tenderness Neuro/Tendon Exam: normal sensation, normal motor functions, normal tendon functions Mental Status Exam: alert, 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, cooperative Skin Exam: normal color, warm, dry SpO2 Interpretation: normal O2 Delivery: Room Air - Course Nursing assessment & vital signs reviewed: Yes Ordered Tests: Active Orders 24 hr Category Date Time Status HAND (MINIMUM 3 VIEWS) Stat Exams 03/16/20 19:39 Taken - Progress Progress: unchanged Progress Note: 03/16/20 20:58 X-ray of the right hand reveals no evidence of any acute fracture or dislocation. Counseled pt/family regarding: diagnosis, need for follow-up, rad results - Departure Departure Disposition: Home Clinical Impression: Sprain of finger of right hand Condition: Stable Critical Care Time: No Referrals: DOCTOR,NO FAMILY [Primary Care Provider] - [facility]Ortho [phone] [id number] Additional Instructions: Ice bath 3 times a day for the next 48 hours. Use Tylenol for pain control. Follow-up with the orthopedic clinic here at [facility] if symptoms worsen or persist beyond the next 48 hours.
[2020-03-16 21:13] VITALS: BP 140/88; PULSE 84; O2SAT 99
--- NOTE | 2020-03-17 09:28 | XRAY ---
Exam: 3 views the right hand from 03/16/2020. Comparison: 3 views the right hand from 01/08/2020. Indication: Hyperextension of 2-3 digits. Findings: AP, oblique, and lateral radiographs of the right hand were obtained. Prior transverse fracture through the base of the distal phalanx of the right fourth finger appears to be in the process of healing, but is not completely healed as of yet. Subtle cortical step-off deformity and posterior angulation of the distal fractured element are seen on the lateral image. I see no new acute right hand fracture or dislocation. I note at least 4 mm negative ulnar variance on the AP image representing no change. The joint spaces appear unremarkable. No radiopaque soft tissue foreign body is seen. Impression: 1. Prior known transverse fracture through the base of the distal phalanx of the right fourth finger is again seen. Although this appears to be in the process of healing, it does not appear fully healed as of yet. Correlate clinically. 2. A new acute fracture or dislocation of the right hand is not seen. 3. 4 mm negative ulnar variance is again seen.
== END 2020-03-16 21:14 | disposition home or self-care (01) ==
LOC: ED 19:20
DX: S63.610A Unspecified sprain of right index finger, initial encounter (principal); S63.612A Unspecified sprain of right middle finger, initial encounter; W01.0XXA Fall on same level from slipping, tripping and stumbling without subsequent striking against object, initial encounter; Y93.9 Activity, unspecified; Y92.9 Unspecified place or not applicable
CPT/HCPCS: 73130; 99283

== ENCOUNTER 2020-03-19 05:36 | Emergency (ER) | payer BC ==
[2020-03-19] MEDS ORDERED: ZOFRAN ODT 4 MG PO ONE (06:10)
[2020-03-19] MEDS ORDERED: ZOFRAN ODT 4 MG ONE (06:16)
--- NOTE | 2020-03-19 06:27 | ERPHSYRPT ---
- History of Present Illness Source: patient Patient Subjective Stated Complaint: pt states she has been vomiting for approx 1.5hrs and has been having lower back pain for last hour. pt states she had her period 2 days ago but it was very light and only lasted for 2 days. states she is concerned about possible . Triage Nursing Assessment: pt alert and oriented, answers questions approp. pt ambulatory with steady gait noted. respirations nonlabored with lungs cta. skin pink warm and dry. abd soft and nontender to light palpation. bowel sounds present x4 Timing/Duration: today Severity: moderate Modifying Factors: Improves With: nothing Associated Symptoms: No abdominal pain, No shortness of breath, No heartburn, No cough, No chest pain, No fever, No loss of appetite, No malaise, No rash, No syncope, No seizure, No weakness Hx Tetanus, Diphtheria Vaccination/Date Given: Yes Hx Influenza Vaccination/Date Given: Yes Hx Pneumococcal Vaccination/Date Given: No Immunizations Up to Date: Yes <CRUZ PHILIP - Last Filed: 03/19/20 06:49> <MOON DELVALLE - Last Filed: 03/19/20 07:24> - History of Present Illness Time Seen by Provider: 03/19/20 05:48 Physician History: Patient is a 24-year-old female presents to our ED with complaints of vomiting for 1.5 hours. Patient states she is also experiencing mild back discomfort. Vomiting occurred while at home. No vomiting observed in our ED or since her arrival. Patient is concerned for possible . Her last menstrual period ended approximately 2 days ago. Patient states that was light. Patient is sexually active and is concerned with . She voices no other complaints. No vaginal discharge. No diarrhea. No abdominal pain. No trauma. Symptoms are mild to moderate in intensity. No specific worsening improving f actors. Patient is otherwise healthy. She voices no other complaints at this time. (CRUZ PHILIP) Allergies/Adverse Reactions: ibuprofen Adverse Reaction (Intermediate, Verified 03/19/20 05:58) high fever and pass out Travel Risk - International Travel Have you traveled outside of the country in past 3 weeks: No - Coronavirus Screening Are you exhibiting any of the following symptoms?: Yes Symptoms: Vomiting/Diarrhea Close contact with a COVID-19 positive Pt in past 14-21 Days: No <CRUZ PHILIP - Last Filed: 03/19/20 06:49> - Review of Systems Constitutional: No Symptoms, No Fever, No Chills Eyes: No Symptoms Ears, Nose, & Throat: No Symptoms Respiratory: No Symptoms, No Cough, No Dyspnea Cardiac: No Symptoms, No Chest Pain, No Edema, No Syncope Abdominal/Gastrointestinal: No Symptoms, No Abdominal Pain, No Nausea, No Vomiting, No Diarrhea Genitourinary Symptoms: No Symptoms, No Dysuria Musculoskeletal: No Symptoms, No Back Pain, No Neck Pain Skin: No Symptoms, No Rash Neurological: No Symptoms, No Dizziness, No Focal Weakness, No Sensory Changes Psychological: No Symptoms Endocrine: No Symptoms Hematologic/Lymphatic: No Symptoms Immunological/Allergic: No Symptoms All Other Systems: Reviewed and Negative <TEECRUZ - Last Filed: 03/19/20 06:49> - Past Medical History Pertinent Past Medical History: No Neurological History: No Pertinent History ENT History: No Pertinent History Cardiac History: No Pertinent History Respiratory History: No Pertinent History Endocrine Medical History: No Pertinent History Musculoskeletal History: No Pertinent History GI Medical History: No Pertinent History History: No Pertinent History Psycho-Social History: Depression Female Reproductive Disorders: No Pertinent History - Past Surgical History Past Surgical History: Yes Neuro Surgical History: No Pertinent History Cardiac: No Pertinent History Respiratory: No Pertinent History Gastrointestinal: No Pertinent History Genitourinary: No Pertinent History Musculoskeletal: No Pertinent History Female Surgical History: Dilation & Curettage - Social History Smoking Status: Current some day smoker How long have you smoked: 5 years Exposure to second hand smoke: Yes Drug Use: none Patient Lives Alone: No Significant Family History: no pertinent family hx - Female History Hx Last Menstrual Period: 2 days ago- very light Hx Now: No (unsure) <TEECRZU - Last Filed: 03/19/20 06:49> - Physical Exam General Appearance: no apparent distress, alert, other (Patient sitting up in bed. She is on her cell phone. Patient is conversant well-appearing and in no acute distress.) Eye Exam: PERRL/EOMI, eyes nml inspection Ears, Nose, Throat Exam: normal ENT inspection, TMs normal, pharynx normal, moist mucous membranes Neck Exam: normal inspection, non-tender, supple, full range of motion Respiratory Exam: normal breath sounds, lungs clear, No respiratory distress Cardiovascular Exam: regular rate/rhythm, normal heart sounds, normal peripheral pulses Gastrointestinal/Abdomen Exam: soft, normal bowel sounds, No tenderness, No mass Back Exam: normal inspection, normal range of motion, No CVA tenderness, No vertebral tenderness Extremity Exam: normal inspection, normal range of motion, pelvis stable Neurologic Exam: alert, 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, cooperative, normal mood/affect, nml cerebellar function, nml station & gait, sensation nml, No motor deficits Skin Exam: normal color, warm, dry, No rash Lymphatic Exam: No adenopathy SpO2 Interpretation: normal SpO2: 98 O2 Delivery: Room Air <[facility] - Last Filed: 03/19/20 06:49> - Nursing Vital Signs Nursing Vital Signs: Initial Vital Signs Respiratory Rate 16 03/19/20 05:43 Pain Scale Pain Intensity 0 - Course Nursing assessment & vital signs reviewed: Yes <[facility] - Last Filed: 03/19/20 06:49> Ordered Tests: Active Orders 24 hr Category Date Time Status HCG,QUALITATIVE URINE Stat Lab 03/19/20 06:11 Completed UA W/RFX UR CULTURE Stat Lab 03/19/20 06:11 Completed Medication Summary Discontinued Medications Generic Name Dose Route Start Last Admin Trade Name Freq PRN Reason Stop Dose Admin Ondansetron HCl 4 mg 03/19/20 06:10 03/19/20 06:17 Zofran Odt 4 Mg PO 03/19/20 06:11 4 mg STAT ONE Administration Ondansetron HCl Confirm 03/19/20 06:16 Zofran Odt 4 Mg Administered 03/19/20 06:17 Dose 4 mg .ROUTE .Tradeshift-Codekko ONE Lab/Rad Data: Laboratory Results 03/19/20 03/19/20 Range/Units 06:11 06:11 Urine Color JODY (YELLOW) Urine Appearance SLIGHTLY CLOUDY (CLEAR) Urine pH 6.0 (5-6) Ur Specific [place] 1.028 (1.005-1.025) Urine Protein NEGATIVE (Negative) Urine Ketones NEGATIVE (NEGATIVE) Urine Blood NEGATIVE (0-5) John Paul/ul Urine Nitrite NEGATIVE (NEGATIVE) Urine Bilirubin NEGATIVE (NEGATIVE) Urine Urobilinogen NEGATIVE (0-1) mg/dL Ur Leukocyte Esterase NEGATIVE (NEGATIVE) Urine WBC (Auto) 0-2 (0-5) /HPF Urine RBC (Auto) NONE (0-2) /HPF U Epithel Cells (Auto) NONE (FEW) /HPF Urine Bacteria (Auto) NONE SEEN (NEGATIVE) /HPF Urine Mucus (Auto) SLIGHT (NEGATIVE) /HPF Urine Culture Reflexed NO (NO) Urine Glucose NEGATIVE (NEGATIVE) mg/dL Urine HCG, Qual NEGATIVE (Negative) - Progress Progress: improved <CRUZ PHILIP - Last Filed: 03/19/20 06:49> - Progress Progress: improved, re-examined Counseled pt/family regarding: lab results, diagnosis, need for follow-up, smoking cessation <MOON DELVALLE - Last Filed: 03/19/20 07:24> - Progress Progress Note: 03/19/20 06:[address] Delvalle at 7 AM for final disposition. (CRUZ PHILIP) 03/19/20 07:24 Patient is checked out to me at end of Dr. Philip shift with pending urinalysis and urine test. Patient presented with nausea and vomiting 1.5 hours prior to arrival. No vomiting while in the ER. She is given Zofran and here and feeling better. On my evaluation she does not have any abdominal tenderness. She has tolerated orally. No signs of distress. I agree with Dr. Philip, does not need any other work-up and is stable for discharge with Zofran to take as needed. Discussed signs symptoms of worsening needing return to ER which he seems understanding. (MOON DELVALLE) <CRUZ PHILIP - Last Filed: 03/19/20 06:49> - Departure Departure Disposition: Home Critical Care Time: No <MOON DELVALLE - Last Filed: 03/19/20 07:24> - Departure Clinical Impression: Nausea & vomiting Qualifiers: Vomiting type: unspecified Vomiting Intractability: non-intractable Qualified Code(s): R11.2 - Nausea with vomiting, unspecified Condition: Stable Referrals: DOCTOR,NO FAMILY [Primary Care Provider] - KENIA MEYER DO [ACTIVE STAFF] - Follow Up with PCP/3 days Instructions: Nausea and Vomiting, Adult (DC) Additional Instructions: Drink plenty of fluids. Take Zofran as needed. Follow-up with primary care for reevaluation. Return to ER for worsening. Prescriptions: Ondansetron ODT 4 MG [Zofran Odt 4 mg] 4 mg PO Q6H PRN PRN #7 tab.rapdis PRN Reason: Vomiting
[2020-03-19 06:44] LABS: Appearance SLIGHTLY CLOUDY (CLEAR); Bilirubin NEGATIVE (NEGATIVE); Blood NEGATIVE Ery/ul (0-5); Glucose NEGATIVE (NEGATIVE); Ketones NEGATIVE (NEGATIVE); Leukocyte Esterase NEGATIVE (NEGATIVE); Mucus SLIGHT /HPF (NEGATIVE); Nitrite NEGATIVE (NEGATIVE); Protein,Urine Dip NEGATIVE (Negative); Specific Gravity 1.028 (1.005-1.025); Urobilinogen NEGATIVE mg/dL (0-1); WBC 0-2 /HPF (0-5)
[2020-03-19 06:50] VITALS: O2SAT 98
[2020-03-19 06:52] LABS: Bacteria NONE SEEN /HPF (NEGATIVE)
[2020-03-19 07:21] VITALS: BP 126/71
[2020-03-19 07:23] VITALS: PULSE 76
== END 2020-03-19 07:24 | disposition home or self-care (01) ==
LOC: ED 05:36
DX: R11.2 Nausea with vomiting, unspecified (principal)
CPT/HCPCS: 81001; 84703; 99283; Q0162

== ENCOUNTER 2020-04-13 23:58 | Emergency (ER) | payer BC ==
--- NOTE | 2020-04-14 00:26 | ERPHSYRPT ---
- History of Present Illness Time Seen by Provider: 04/14/20 00:21 Historian: patient Exam Limitations: no limitations Patient Subjective Stated Complaint: pt states sh has been having some lower abd pain for approx 4 hours, had a diarrhea stool approx 2 hours ago. Triage Nursing Assessment: pt alert and oriented, answers questions approp. pt ambulatory with steady gait noted. respirations nonlabored with lungs cta. abd soft and nontender to light palpation. bowel sounds x4 quadrants. skin pink warm and dry. Physician History: pt had emesis 2 days ago and now cramping lower abd pain diffuse not localizing to either side with diarrhea . no fever , no resp symptoms, no vag discharge or bleeding, normal periods, keeping down fluids/food today. no hx trauma. There are 8 visits noted in the past 3-4 months for vomiting and mostly abdominal complaints. THe abdomin is nontender without masses or peritoneal signs or guarding. Timing/Duration: today Activities at Onset: none Quality: sharpness, stabbing Abdominal Pain Onset Location: generalized abdomen Pain Radiation: no radiation Severity of Pain-Max: moderate Severity of Pain-Current: moderate Modifying Factors: Improves With: nothing Associated Symptoms: diarrhea, vomiting Previous symptoms: same symptoms as today, recently seen, recently treated Allergies/Adverse Reactions: ibuprofen Adverse Reaction (Intermediate, Verified 04/14/20 00:18) high fever and pass out Home Medications: No Reportable Medications [No Reported Medications] 04/14/20 [History] Hx Tetanus, Diphtheria Vaccination/Date Given: Yes Hx Influenza Vaccination/Date Given: No Hx Pneumococcal Vaccination/Date Given: No Immunizations Up to Date: Yes Travel Risk - International Travel Have you traveled outside of the country in past 3 weeks: No - Coronavirus Screening Are you exhibiting any of the following symptoms?: No Close contact with a COVID-19 positive Pt in past 14-21 Days: No - Review of Systems Constitutional: No Fever, No Chills Eyes: No Symptoms Ears, Nose, & Throat: No Symptoms Respiratory: No Cough, No Dyspnea Cardiac: No Chest Pain, No Edema, No Syncope Abdominal/Gastrointestinal: Abdominal Pain, Vomiting, Diarrhea, No Nausea Genitourinary Symptoms: No Dysuria Musculoskeletal: No Back Pain, No Neck Pain Skin: No Rash Neurological: No Dizziness, No Focal Weakness, No Sensory Changes Psychological: No Symptoms Endocrine: No Symptoms Hematologic/Lymphatic: No Symptoms Immunological/Allergic: No Symptoms All Other Systems: Reviewed and Negative - Past Medical History Pertinent Past Medical History: No Neurological History: No Pertinent History ENT History: No Pertinent History Cardiac History: No Pertinent History Respiratory History: No Pertinent History Endocrine Medical History: No Pertinent History Musculoskeletal History: No Pertinent History GI Medical History: No Pertinent History History: No Pertinent History Psycho-Social History: Depression Female Reproductive Disorders: No Pertinent History - Past Surgical History Past Surgical History: Yes Neuro Surgical History: No Pertinent History Cardiac: No Pertinent History Respiratory: No Pertinent History Gastrointestinal: No Pertinent History Genitourinary: No Pertinent History Musculoskeletal: No Pertinent History Female Surgical History: Dilation & Curettage - Social History Smoking Status: Current some day smoker How long have you smoked: 5 years Exposure to second hand smoke: Yes Drug Use: none Patient Lives Alone: No Significant Family History: no pertinent family hx - Female History Hx Last Menstrual Period: 03/10/2020 Hx Now: No (unsure) - Nursing Vital Signs Nursing Vital Signs: Initial Vital Signs Temperature 98.7 F 04/14/20 00:07 Pulse Rate 104 H 04/14/20 00:07 Respiratory Rate 18 04/14/20 00:07 Blood Pressure 132/81 04/14/20 00:07 O2 Sat by Pulse Oximetry 99 04/14/20 00:07 Pain Scale Pain Intensity 4 - Physical Exam General Appearance: no apparent distress, alert Eye Exam: PERRL/EOMI, eyes nml inspection Ears, Nose, Throat Exam: normal ENT inspection, pharynx normal, moist mucous membranes Neck Exam: normal inspection, non-tender, supple, full range of motion Respiratory Exam: normal breath sounds, lungs clear, No respiratory distress Cardiovascular Exam: regular rate/rhythm, normal heart sounds Gastrointestinal/Abdomen Exam: soft, No tenderness, No mass Pelvic Exam: deferred Rectal Exam: deferred Back Exam: normal inspection, normal range of motion, No CVA tenderness, No vertebral tenderness Extremity Exam: normal inspection, normal range of motion, pelvis stable Neurologic Exam: alert, 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, cooperative, normal mood/affect, nml cerebellar function, sensation nml, No motor deficits Skin Exam: normal color, warm, dry SpO2 Interpretation: normal SpO2: 99 O2 Delivery: Room Air - Course Nursing assessment & vital signs reviewed: Yes - Radiology Ultrasound Exam OB Ultrasound: tele radiology report, No Torsion/Nml Flow, Other (some fluid , and may be yolk sac in uterus , corpus luteum on left cannot yet rule out ectopic) Ordered Tests: Active Orders 24 hr Category Date Time Status OB <14 WKS 1ST GESTATION [US] Stat Exams 04/14/20 01:05 Taken AMYLASE Stat Lab 04/14/20 00:29 Completed CBC W DIFF Stat Lab 04/14/20 00:29 Completed CMP Stat Lab 04/14/20 00:29 Completed HCG QUALITATIVE,SERUM Stat Lab 04/14/20 00:29 Completed HCG, Quantitative (Inhouse) Stat Lab 04/14/20 00:30 Completed LIPASE Stat Lab 04/14/20 00:29 Completed Lactic Acid Stat Lab 04/14/20 00:30 Completed UA W/RFX UR CULTURE Stat Lab 04/14/20 00:30 Completed Medication Summary Discontinued Medications Generic Name Dose Route Start Last Admin Trade Name Freq PRN Reason Stop Dose Admin Ketorolac Tromethamine 30 mg 04/14/20 00:45 04/14/20 01:05 Toradol 30 Mg Injection IM 04/14/20 00:46 Not Given STAT ONE Ondansetron HCl 4 mg 04/14/20 00:31 04/14/20 00:38 Zofran Odt 4 Mg PO 04/14/20 00:32 4 mg STAT ONE Administration Ondansetron HCl Confirm 04/14/20 00:37 Zofran Odt 4 Mg Administered 04/14/20 00:38 Dose 4 mg .ROUTE .STK-MED ONE Lab/Rad Data: Laboratory Result Diagrams 04/14/20 00:29 04/14/20 00:29 Laboratory Results 04/14/20 04/14/20 04/14/20 Range/Units 00:30 00:30 00:30 WBC (4.0-10.5) K/mm3 RBC (4.1-5.4) M/mm3 Hgb (12.0-16.0) gm/dl Hct (35-47) % MCV (78-100) fl MCH (26-32) pg MCHC (32-36) g/dl RDW (11.5-14.0) % Plt Count (150-450) K/mm3 MPV (7.5-11.0) fl Gran % (36.0-66.0) % Eos # (Auto) (0-0.5) Absolute Lymphs (auto) (1.0-4.6) Absolute Monos (auto) (0.0-1.3) Lymphocytes % (24.0-44.0) % Monocytes % (0.0-12.0) % Eosinophils % (0.00-5.0) % Basophils % (0.0-0.4) % Absolute Granulocytes (1.4-6.9) Basophils # (0-0.4) Sodium (137-145) mmol/L Potassium (3.5-5.1) mmol/L Chloride (98-107) mmol/L Carbon Dioxide (22-30) mmol/L Anion Gap (5-15) MEQ/L BUN (7-17) mg/dL Creatinine (0.52-1.04) mg/dL Estimated GFR ML/MIN Glucose (74-106) mg/dL Lactic Acid 0.7 (0.4-2.0) Calcium (8.4-10.2) mg/dL Total Bilirubin (0.2-1.3) mg/dL AST (14-36) U/L ALT (0-35) U/L Alkaline Phosphatase (38-126) U/L Serum Total Protein (6.3-8.2) g/dL Albumin (3.5-5.0) g/dL Amylase (30-110) U/L Lipase (23-300) U/L Beta HCG, Quant 1121.3 mIU/ml Serum , Qual (Negative) Urine Color YELLOW (YELLOW) Urine Appearance SLIGHTLY CLOUDY (CLEAR) Urine pH 5.0 (5-6) Ur Specific [place] 1.023 (1.005-1.025) Urine Protein NEGATIVE (Negative) Urine Ketones NEGATIVE (NEGATIVE) Urine Blood NEGATIVE (0-5) John Paul/ul Urine Nitrite NEGATIVE (NEGATIVE) Urine Bilirubin NEGATIVE (NEGATIVE) Urine Urobilinogen NEGATIVE (0-1) mg/dL Ur Leukocyte Esterase SMALL (NEGATIVE) Urine WBC (Auto) 6-10 (0-5) /HPF Urine RBC (Auto) 0-2 (0-2) /HPF U Epithel Cells (Auto) RARE (FEW) /HPF Urine Bacteria (Auto) RARE (NEGATIVE) /HPF Urine Mucus (Auto) MODERATE (NEGATIVE) /HPF Urine Culture Reflexed NO (NO) Urine Glucose NEGATIVE (NEGATIVE) mg/dL 04/14/20 04/14/20 04/14/20 Range/Units 00:29 00:29 00:29 WBC 8.9 (4.0-10.5) K/mm3 RBC 4.20 (4.1-5.4) M/mm3 Hgb 12.3 (12.0-16.0) gm/dl Hct 48.1 H (35-47) % MCV 114.5 H (78-100) fl MCH 29.3 (26-32) pg MCHC 25.6 L (32-36) g/dl RDW 14.3 H (11.5-14.0) % Plt Count 323 (150-450) K/mm3 MPV 10.7 (7.5-11.0) fl Gran % 61.3 (36.0-66.0) % Eos # (Auto) 0.24 (0-0.5) Absolute Lymphs (auto) 2.45 (1.0-4.6) Absolute Monos (auto) 0.76 (0.0-1.3) Lymphocytes % 27.4 (24.0-44.0) % Monocytes % 8.5 (0.0-12.0) % Eosinophils % 2.7 (0.00-5.0) % Basophils % 0.1 (0.0-0.4) % Absolute Granulocytes 5.47 (1.4-6.9) Basophils # 0.01 (0-0.4) Sodium 139 (137-145) mmol/L Potassium 3.4 L (3.5-5.1) mmol/L Chloride 107 (98-107) mmol/L Carbon Dioxide 24 (22-30) mmol/L Anion Gap 11.5 (5-15) MEQ/L BUN 7 (7-17) mg/dL Creatinine 0.55 (0.52-1.04) mg/dL Estimated GFR > 60.0 ML/MIN Glucose 102 (74-106) mg/dL Lactic Acid (0.4-2.0) Calcium 9.0 (8.4-10.2) mg/dL Total Bilirubin 0.30 (0.2-1.3) mg/dL AST 19 (14-36) U/L ALT 16 (0-35) U/L Alkaline Phosphatase 71 (38-126) U/L Serum Total Protein 7.2 (6.3-8.2) g/dL Albumin 4.0 (3.5-5.0) g/dL Amylase 49 (30-110) U/L Lipase 67 (23-300) U/L Beta HCG, Quant mIU/ml Serum , Qual POSITIVE (Negative) Urine Color (YELLOW) Urine Appearance (CLEAR) Urine pH (5-6) Ur Specific [place] (1.005-1.025) Urine Protein (Negative) Urine Ketones (NEGATIVE) Urine Blood (0-5) John Paul/ul Urine Nitrite (NEGATIVE) Urine Bilirubin (NEGATIVE) Urine Urobilinogen (0-1) mg/dL Ur Leukocyte Esterase (NEGATIVE) Urine WBC (Auto) (0-5) /HPF Urine RBC (Auto) (0-2) /HPF U Epithel Cells (Auto) (FEW) /HPF Urine Bacteria (Auto) (NEGATIVE) /HPF Urine Mucus (Auto) (NEGATIVE) /HPF Urine Culture Reflexed (NO) Urine Glucose (NEGATIVE) mg/dL - Progress Progress: improved, re-examined Progress Note: 04/14/20 01:00 pt has positive HCG. Discussed that with lower abd pain we have some concerns for pathology of with need for US . Advised pt that US tech available clinically has COvid ( although testing was neg) and is working with full PPE as protection to pts. Pt is comfortable and consents to this tech performing her US in this circumstance, and after discussion of risks and benefits. . will also send quant HCG. 04/14/20 03:11 discussed US findings with pt and that we cannot exclude an early ectopic at this early stage with need for followup in next few days to make this determination . SHe is comfortable with this approach vs inhouse admit or furhter workup in ER after discussion of the risks and benefits and has the capacity to make this choice. Counseled pt/family regarding: lab results, diagnosis, need for follow-up, rad results - Departure Departure Disposition: Home Clinical Impression: , Abdominal pain Condition: Good Critical Care Time: No Referrals: DOCTOR,NO FAMILY [Primary Care Provider] - Instructions: Acute Abdomen (Belly Pain), Adult (DC), Ectopic Additional Instructions: we are providing instructions for abdominal pain and ectopic since we have not yet ruled this out, although the appearance of the ultrasound could be consistent with early as well as early ectopic but too early to tell. therefore it is important to contact your OB Tuesday to discuss followup which may include a recheck of the HCG blood test for the level as well as ultrasound followup to rule out an evolving ectopic or other concerns. Return meantime if increasing pain, especially on the left side where there is a cyst which could also be an early ectopic, or for any dizziness or other concerns.
[2020-04-14] MEDS ORDERED: ZOFRAN ODT 4 MG PO ONE (00:31)
[2020-04-14 00:33] LABS: Absolute Neutrophil Ct (ANC) 5.47 (1.4-6.9); BASOPHIL % 0.1 % (0.0-0.4); Basophil (Absolute #) 0.01 (0-0.4); Eosinophil % 2.7 % (0.00-5.0); Eosinophil (Absolute #) 0.24 (0-0.5); Hematocrit 48.1 % (35-47); Hemoglobin 12.3 gm/dl (12.0-16.0); Lymphocyte (Absolute #) 2.45 (1.0-4.6); Lymphocytes % 27.4 % (24.0-44.0); Mean Cell Volume 114.5 fl (78-100); Mean Corpuscular Hemoglobin 29.3 pg (26-32); Mean Corpuscular Hgb Concent. 25.6 g/dl (32-36); Mean Platelet Volume 10.7 fl (7.5-11.0); Monocyte (Absolute #) 0.76 (0.0-1.3); Monocytes % 8.5 % (0.0-12.0); Neutrophil % 61.3 % (36.0-66.0); Platelet Count 323 K/mm3 (150-450); Red Cell Distribution Width 14.3 % (11.5-14.0); White Blood Count 8.9 K/mm3 (4.0-10.5)
[2020-04-14 00:37] LABS: Appearance SLIGHTLY CLOUDY (CLEAR); Bacteria RARE /HPF (NEGATIVE); Bilirubin NEGATIVE (NEGATIVE); Blood NEGATIVE Ery/ul (0-5); Epithelial Cells RARE /HPF (FEW); Glucose NEGATIVE (NEGATIVE); Ketones NEGATIVE (NEGATIVE); Leukocyte Esterase SMALL (NEGATIVE); Mucus MODERATE /HPF (NEGATIVE); Nitrite NEGATIVE (NEGATIVE); Protein,Urine Dip NEGATIVE (Negative); RBC 0-2 /HPF (0-2); Specific Gravity 1.023 (1.005-1.025); Urobilinogen NEGATIVE mg/dL (0-1)
[2020-04-14] MEDS ORDERED: ZOFRAN ODT 4 MG ONE (00:37)
[2020-04-14 00:44] LABS: ALKALINE PHOSPHATASE 71 U/L (38-126); AMYLASE 49 U/L (30-110); ANION GAP 11.5 MEQ/L (5-15); BLOOD UREA NITROGEN 7 mg/dL (7-17); CHLORIDE 107 mmol/L (98-107); Carbon Dioxide 24 mmol/L (22-30); Creatinine 1 0.55 mg/dL (0.52-1.04); EST GLOMERULAR FILTRATION RATE > 60.0 ML/MIN; Glucose 102 mg/dL (74-106); LIPASE 67 U/L (23-300); Potassium 3.4 mmol/L (3.5-5.1); SGOT/AST 19 U/L (14-36); SGPT/ALT 16 U/L (0-35); SODIUM 139 mmol/L (137-145); Total Protein 7.2 g/dL (6.3-8.2)
[2020-04-14] MEDS ORDERED: TORAdol 30 mg Injection IM ONE (00:45)
[2020-04-14 03:34] VITALS: BP 104/83; PULSE 75; O2SAT 98
--- NOTE | 2020-04-14 07:33 | XRAY ---
Indication: Abdomen pain. . Two-dimensional transvaginal early OB ultrasound performed. Comparison: None Uterus is retroflexed with tiny intrauterine sac measuring 4.4 mm, too small to calculate gestational age. No pole or heart tones. Tiny nonspecific fluid in the endometrial cavity. Right ovary measures 2.8 x 2.1 x 3.9 cm and the left measures 2.2 x 2.3 x 2.6 cm with normal perfusion bilaterally. Left ovary demonstrates a 2.5 cm heterogeneous echogenicity, possible corpus luteal cyst with ectopic not completely excluded. Small cul-de-sac fluid. Impression: 1. Intrauterine cystic mass, possible gestational sac too small to calculate gestational age. No pole/heart tones. Correlate with serial beta-hCG and follow-up sonogram. 2. Left ovary heterogeneous echogenicity, possibly corpus luteal cyst with ectopic not completely excluded. 3. Small cul-de-sac fluid. Comment: Preliminary interpretation was made by [facility]. No critical discrepancy.
== END 2020-04-14 03:33 | disposition home or self-care (01) ==
LOC: ED 23:58
DX: Z33.1 Pregnant state, incidental (principal); R10.30 Lower abdominal pain, unspecified; R19.7 Diarrhea, unspecified
CPT/HCPCS: 36415; 76801; 80053; 81001; 81025; 82150; 83605; 83690; 84702; 85025; 99284; Q0162

== ENCOUNTER 2020-05-16 01:52 | Emergency (ER) | payer BC ==
[2020-05-16 02:07] VITALS: O2SAT 99
--- NOTE | 2020-05-16 02:15 | ERPHSYRPT ---
- History of Present Illness Time Seen by Provider: 05/16/20 02:05 Source: patient Exam Limitations: no limitations Patient Subjective Stated Complaint: dizziness upon waking Triage Nursing Assessment: Patient alert and oriented. Woke up 2 hours ago with dizziness that has since resolved. Physician History: Patient is a 24-year-old female presents to our ED for evaluation. Patient states she awoke approximately 2 hours ago. She felt slightly dizzy. Patient was worried about her blood pressure and came to our ED for an evaluation. Patient symptoms have since resolved. Patient currently has no complaints. Patient feels well. No associated nausea or vomiting. No diarrhea. No rash. No vaginal discharge. Patient taking vitamins. No hematuria dysuria or urinary tract symptomology. Patient denies chest pain shortness of breath. No associated numbness tingling or weakness. Patient denies cold exposure. Patient voices no other complaints concerns at this time. Patient states that she currently has an appointment scheduled with her primary care doctor. Appointment scheduled for Tuesday. Patient feels work-up is not indicated at this time she feels perfectly fine symptoms have resolved. Timing/Duration: today Severity: mild Modifying Factors: Improves With: nothing Associated Symptoms: denies symptoms Allergies/Adverse Reactions: ibuprofen Adverse Reaction (Intermediate, Verified 04/14/20 00:18) high fever and pass out Home Medications: No Reportable Medications [No Reported Medications] 04/14/20 [History] Hx Tetanus, Diphtheria Vaccination/Date Given: Yes Hx Influenza Vaccination/Date Given: No Hx Pneumococcal Vaccination/Date Given: No Travel Risk - International Travel Have you traveled outside of the country in past 3 weeks: No - Coronavirus Screening Are you exhibiting any of the following symptoms?: No Close contact with a COVID-19 positive Pt in past 14-21 Days: No - Review of Systems Constitutional: No Symptoms, No Fever, No Chills Eyes: No Symptoms Ears, Nose, & Throat: No Symptoms Respiratory: No Symptoms, No Cough, No Dyspnea Cardiac: No Symptoms, No Chest Pain, No Edema, No Syncope Abdominal/Gastrointestinal: No Symptoms, No Abdominal Pain, No Nausea, No Vomiting, No Diarrhea Genitourinary Symptoms: No Symptoms, No Dysuria Musculoskeletal: No Symptoms, No Back Pain, No Neck Pain Skin: No Symptoms, No Rash Neurological: No Symptoms, No Dizziness, No Focal Weakness, No Sensory Changes Psychological: No Symptoms Endocrine: No Symptoms Hematologic/Lymphatic: No Symptoms Immunological/Allergic: No Symptoms All Other Systems: Reviewed and Negative - Past Medical History Pertinent Past Medical History: No Neurological History: No Pertinent History ENT History: No Pertinent History Cardiac History: No Pertinent History Respiratory History: No Pertinent History Endocrine Medical History: No Pertinent History Musculoskeletal History: No Pertinent History GI Medical History: No Pertinent History History: No Pertinent History Psycho-Social History: Depression Female Reproductive Disorders: No Pertinent History Other Medical History: four previous pregnancies, 1 miscarriage - Past Surgical History Past Surgical History: Yes Neuro Surgical History: No Pertinent History Cardiac: No Pertinent History Respiratory: No Pertinent History Gastrointestinal: No Pertinent History Genitourinary: No Pertinent History Musculoskeletal: No Pertinent History Female Surgical History: Dilation & Curettage - Social History Smoking Status: Former smoker How long have you smoked: 5 years Exposure to second hand smoke: Yes Drug Use: none Patient Lives Alone: No Significant Family History: no pertinent family hx - Female History Hx Last Menstrual Period: 03/08/20 Hx Now: Yes - Nursing Vital Signs Nursing Vital Signs: Initial Vital Signs Temperature 97.8 F 05/16/20 01:59 Pulse Rate 80 05/16/20 01:59 Respiratory Rate 16 05/16/20 01:59 Blood Pressure 126/87 05/16/20 01:59 O2 Sat by Pulse Oximetry 99 05/16/20 01:59 Pain Scale Pain Intensity 0 - Physical Exam General Appearance: no apparent distress, alert Eye Exam: PERRL/EOMI, eyes nml inspection Ears, Nose, Throat Exam: normal ENT inspection, TMs normal, pharynx normal, moist mucous membranes Neck Exam: normal inspection, non-tender, supple, full range of motion Respiratory Exam: normal breath sounds, lungs clear, No respiratory distress Cardiovascular Exam: regular rate/rhythm, normal heart sounds, normal peripheral pulses, capillary refill <2 sec, No tachycardia, No bradycardia, No irregular, No capillary refill 2-3 sec, No edema Gastrointestinal/Abdomen Exam: soft, normal bowel sounds, No tenderness, No mass Back Exam: normal inspection, normal range of motion, No CVA tenderness, No vertebral tenderness Extremity Exam: normal inspection, normal range of motion, pelvis stable Neurologic Exam: alert, 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, cooperative, normal mood/affect, nml cerebellar function, nml station & gait, sensation nml, No motor deficits Skin Exam: normal color, warm, dry, No rash Lymphatic Exam: No adenopathy SpO2 Interpretation: normal SpO2: 99 O2 Delivery: Room Air - Course Nursing assessment & vital signs reviewed: Yes - Progress Progress: improved Progress Note: 05/16/20 02:21 Patient presented to our ED for transient mild dizziness which resolved prior to arrival. Patient was worried about her blood pressure. Blood pressure vitals are normal. Physical exam completely normal. Patient is completely asymptomatic. Pneumaturia or dysuria. No urinary tract infection symptomology. Patient requesting discharge. Patient will follow-up with her primary care doctor on Tuesday as scheduled. 05/16/20 02:24 Counseled pt/family regarding: diagnosis, need for follow-up - Departure Departure Disposition: Home Clinical Impression: Blood pressure check, Dizziness Condition: Stable Critical Care Time: No Referrals: DAVON BUCHANAN [ACTIVE STAFF] - Instructions: Dizziness, Nonvertigo, (DC) Additional Instructions: Discharge/Care Plan ANALY MCCORMICK was seen on 05/16/20 in the Emergency Room. The patient was counseled regarding Diagnosis,Lab results, Imaging studies, need for follow up and when to return to the Emergency Room. Prescriptions given: Discharge Note I have spoken with the patient and/or caregivers. I have explained the patient's condition, diagnosis and treatment plan based on the information available to me at this time. I have answered the patient's and/or caregiver's questions and addressed any concerns. The patient and/or caregivers have as good understanding of the patient's diagnosis, condition and treatment plan as can be expected at this point. The vital signs have been stable. The patient's condition is stable and appropriate for discharge from the emergency department. The patient will pursue further outpatient evaluation with the primary care physician or other designated or consulting physician as outlined in the discharge instructions. The patient and/or caregivers are agreeable to this plan of care and follow-up instructions have been explained in detail. The patient and/or caregivers have received these instruction. The patient/and or caregivers are aware that any significant change in condition or worsening of symptoms should prompt an immediate return to this or the closest emergency department or call 911.
[2020-05-16 02:22] VITALS: BP 114/83; PULSE 79
== END 2020-05-16 02:25 | disposition home or self-care (01) ==
LOC: ED 01:52
DX: R42 Dizziness and giddiness (principal)
CPT/HCPCS: 99283

== ENCOUNTER 2020-11-17 16:20 | Observation (INO) | payer BC ==
[2020-11-17 17:13] LABS: Absolute Neutrophil Ct (ANC) 7.89 (1.4-6.9); BASOPHIL % 0.2 % (0.0-0.4); Basophil (Absolute #) 0.02 (0-0.4); Eosinophil % 3.2 % (0.00-5.0); Eosinophil (Absolute #) 0.35 (0-0.5); Hematocrit 34.9 % (35-47); Hemoglobin 11.2 gm/dl (12.0-16.0); Lymphocyte (Absolute #) 1.76 (1.0-4.6); Lymphocytes % 16.1 % (24.0-44.0); Mean Cell Volume 91.8 fl (78-100); Mean Corpuscular Hemoglobin 29.5 pg (26-32); Mean Corpuscular Hgb Concent. 32.1 g/dl (32-36); Mean Platelet Volume 9.2 fl (7.5-11.0); Monocyte (Absolute #) 0.93 (0.0-1.3); Monocytes % 8.5 % (0.0-12.0); Platelet Count 239 K/mm3 (150-450); Red Cell Distribution Width 13.5 % (11.5-14.0)
[2020-11-17 17:58] LABS: ALBUMIN 3.8 g/dL (3.5-5.0); ALKALINE PHOSPHATASE 97 U/L (38-126); ANION GAP 12.5 MEQ/L (5-15); BLOOD UREA NITROGEN 4 mg/dL (7-17); CHLORIDE 106 mmol/L (98-107); Carbon Dioxide 20 mmol/L (22-30); Creatinine 1 0.51 mg/dL (0.52-1.04); EST GLOMERULAR FILTRATION RATE > 60.0 ML/MIN; Glucose 97 mg/dL (74-106); Potassium 3.7 mmol/L (3.5-5.1); SGOT/AST 18 U/L (14-36); SGPT/ALT 11 U/L (0-35); SODIUM 135 mmol/L (137-145); Total Protein 7.4 g/dL (6.3-8.2); Uric Acid 4.1 mg/dL (2.6-6.0)
[2020-11-17 18:12] LABS: Creatinine, Urine Random 225.9 mg/dl
[2020-11-17 20:20] VITALS: BP 118/67; PULSE 89; O2SAT 97
--- NOTE | 2020-11-18 08:45 | XRAY ---
Indication: Gestational hypertension. Ultrasound biophysical profile exam performed. Comparison: None There is a single viable intrauterine with heart rate 150 BPM. Four-quadrant JOSE is 17 cm. 2 points given for breathing, movements, tone, and qualitative amniotic fluid volume. Impression: Total biophysical profile score is 8 out of 8.
--- NOTE | 2020-11-18 08:55 | XRAY ---
Indication: growth and weight. Gestational hypertension. 2-dimensional OB ultrasound performed. Comparison: None. There is a single viable intrauterine currently in cephalic presentation. Normal four-chamber heart with heart rate 145 BPM. Anterior placenta without abruption/previa. BPD measures 8.44 cm corresponding to 34 weeks 0 days. HC measures 32.40 cm corresponding to 36 weeks 5 days. AC measures 32.44 cm corresponding to 36 weeks 2 days. FL measures 7.68 cm corresponding to 39 weeks 2 days. Estimated weight 6 lbs. 12 oz., +/-1 lb. 0 oz. Approximately 68 percentile. JOSE is 17 cm. Impression: Single viable intrauterine with mean gestational age 36 weeks 4 days. Expected date confinement is December 11, 2020.
[2020-11-18 13:49] LABS: Appearance CLEAR (CLEAR); Bacteria MODERATE /HPF (NEGATIVE); Bilirubin NEGATIVE (NEGATIVE); Blood NEGATIVE Ery/ul (0-5); Epithelial Cells RARE /HPF (FEW); Glucose NEGATIVE (NEGATIVE); Hyaline Casts 0-2 /LPF (0-2); Ketones NEGATIVE (NEGATIVE); Leukocyte Esterase TRACE (NEGATIVE); Nitrite NEGATIVE (NEGATIVE); Protein,Urine Dip NEGATIVE (Negative); Specific Gravity 1.008 (1.005-1.025); Urobilinogen 2 mg/dL (0-1)
== END 2020-11-17 20:05 | disposition home or self-care (01) ==
LOC: WHC 16:20 → OB 16:49
PROVIDERS: ADMIT Obstetrics & Gynecology; ATTEND Obstetrics & Gynecology
DX: O24.419 Gestational diabetes mellitus in pregnancy, unspecified control (principal); Z3A.36 36 weeks gestation of pregnancy
CPT/HCPCS: 36415; 59025; 76816; 76819; 80053; 81001; 82570; 84156; 84550; 85025; 87081; G0378; 76805

== ENCOUNTER 2020-12-04 20:34 | Observation (INO) | payer BC ==
[2020-12-04 21:07] VITALS: BP 137/87; PULSE 117
[2020-12-04 21:27] LABS: Appearance SLIGHTLY CLOUDY (CLEAR); Bacteria FEW /HPF (NEGATIVE); Bilirubin NEGATIVE (NEGATIVE); Blood NEGATIVE Ery/ul (0-5); Epithelial Cells RARE /HPF (FEW); Glucose NEGATIVE (NEGATIVE); Ketones NEGATIVE (NEGATIVE); Leukocyte Esterase MODERATE (NEGATIVE); Mucus SLIGHT /HPF (NEGATIVE); Nitrite NEGATIVE (NEGATIVE); Protein,Urine Dip NEGATIVE (Negative); Specific Gravity 1.014 (1.005-1.025); Urobilinogen NEGATIVE mg/dL (0-1)
[2020-12-04 21:55] LABS: Amphetamine,Urine NEGATIVE (NEGATIVE); Barbiturate,Urine NEGATIVE (NEGATIVE); Benzodiazepine,Urine NEGATIVE (NEGATIVE); Cocaine,Urine NEGATIVE (NEGATIVE); Methadone,Urine NEGATIVE (NEGATIVE); Opiate,Urine NEGATIVE (NEGATIVE); PCP,Urine NEGATIVE (NEGATIVE); THC,Urine NEGATIVE (NEGATIVE)
== END 2020-12-04 22:05 | disposition home or self-care (01) ==
LOC: MED SURG 20:34 → UNDOADMOB 20:34 → UNDODISOB 22:05
PROVIDERS: ADMIT Obstetrics & Gynecology; ATTEND Obstetrics & Gynecology
DX: Z34.83 Encounter for supervision of other normal pregnancy, third trimester (principal); Z3A.38 38 weeks gestation of pregnancy
CPT/HCPCS: 80307; 81001; G0378

== ENCOUNTER 2020-12-05 15:09 | Observation (INO) | payer BC ==
[2020-12-05] MEDS ORDERED: BRETHINE 1 MG/ML SQ ONE (16:00)
[2020-12-05 18:29] VITALS: BP 131/75; PULSE 104; O2SAT 97
== END 2020-12-05 18:20 | disposition home or self-care (01) ==
LOC: OB 15:50
PROVIDERS: ADMIT Obstetrics & Gynecology; ATTEND Obstetrics & Gynecology
DX: Z34.83 Encounter for supervision of other normal pregnancy, third trimester (principal); Z3A.38 38 weeks gestation of pregnancy
CPT/HCPCS: G0378

== ENCOUNTER 2020-12-09 05:10 | Inpatient (IN) | payer BC ==
[~2020-12-09 05:10] MED LIST: CEFAZOLIN 2 GM-D5W BAG** 2 GM/50 ML ML IV SCH; Lactated Ringers 1,000 ML IV ONE; Lactated Ringers 1,000 ML IV SCH; Pepcid 20 MG VIAL IV SCH; Reglan 10 MG/2 ML IV SCH; SOD CITRATE-CITRIC ACID SOLN PO ONE
[2020-12-09 06:13] LABS: Hemoglobin 11.2 gm/dl (12.0-16.0); Mean Cell Volume 91.4 fl (78-100); Mean Corpuscular Hemoglobin 29.2 pg (26-32); Mean Platelet Volume 9.7 fl (7.5-11.0); Platelet Count 218 K/mm3 (150-450); Red Blood Count 3.83 M/mm3 (4.1-5.4); Red Cell Distribution Width 14.9 % (11.5-14.0); White Blood Count 13.6 K/mm3 (4.0-10.5)
[2020-12-09 06:19] LABS: INR 1.03 (0.8-3.0); PROTIME 11.6 SECONDS (9.95-12.35)
[2020-12-09 06:22] LABS: PTT 26.6 SECONDS (25.3-37.0)
[2020-12-09 06:47] LABS: Amphetamine,Urine NEGATIVE (NEGATIVE); Barbiturate,Urine NEGATIVE (NEGATIVE); Benzodiazepine,Urine NEGATIVE (NEGATIVE); Cocaine,Urine NEGATIVE (NEGATIVE); Methadone,Urine NEGATIVE (NEGATIVE); Opiate,Urine NEGATIVE (NEGATIVE); PCP,Urine NEGATIVE (NEGATIVE); THC,Urine NEGATIVE (NEGATIVE)
[2020-12-09] MEDS ORDERED: BICITRA 30 ML CUP ONE (07:00)
[2020-12-09 07:08] LABS: ABO TYPING A; Antibody Screen NEGATIVE (NEGATIVE); RH TYPING POSITIVE
[2020-12-09] MEDS ORDERED: CLARITIN 10 MG PO PRN (07:37)
[2020-12-09] MEDS ORDERED: DEMEROL 50 MG IV PRN (07:37)
[2020-12-09] MEDS ORDERED: MORPHINE SULFATE 2 MG INJ IV PRN (07:37)
[2020-12-09] MEDS ORDERED: BENADRYL 50 MG/ML IV PRN (07:37)
[2020-12-09] MEDS ORDERED: CORTISONE 1% CREAM TP PRN (07:37)
[2020-12-09] MEDS ORDERED: PERCOCET TABLET 5/325MG PO PRN (07:37)
[2020-12-09] MEDS ORDERED: Zofran 4 MG/2 ML VIAL IV PRN (07:37)
[2020-12-09] MEDS ORDERED: Narcan 0.4 MG/ML IV PRN (07:37)
[2020-12-09] MEDS ORDERED: Dermoplast Spray TP PRN (07:37)
[2020-12-09] MEDS ORDERED: Mylicon 80MG PO PRN (07:37)
[2020-12-09] MEDS ORDERED: Nubain 10 MG/ML IV PRN (07:37)
[2020-12-09] MEDS ORDERED: TYLENOL EXTRA STRENGTH 500 MG PO PRN (07:37)
[2020-12-09] MEDS ORDERED: HOLD NARCOTIC ANALGESICS AND SEDATIVES X24 HR MC PRN (07:37)
[2020-12-09] MEDS ORDERED: TUCKS TP PRN (07:37)
[2020-12-09] MEDS ORDERED: Anucort-HC SUPPOSITORY PR PRN (07:37)
[2020-12-09] MEDS ORDERED: Dulcolax 10 MG SUPP PR PRN (07:37)
[2020-12-09] MEDS ORDERED: PHENYLEPHRINE HCL ONE (07:43)
[2020-12-09] MEDS ORDERED: Astramorph-Pf 5 MG/10 ML ONE (07:43)
[2020-12-09] MEDS ORDERED: Pitocin 10 UNITS/ML ONE (08:20)
[2020-12-09] MEDS ORDERED: Zofran 4 MG/2 ML VIAL ONE (08:20)
[2020-12-09] MEDS ORDERED: MARCAINE 0.5%-EPI 1:200,000 VL IJ ONE (08:33)
[2020-12-09] MEDS ORDERED: Decadron 4 MG INJ ONE (08:34)
[2020-12-09] MEDS ORDERED: TRANEXAMIC ACID 1000 MG/10 ML 1,000 MG in Sodium Chloride 0.9% 100 ML BAG 100 ML IV SCH (09:00)
[2020-12-09] MEDS: Dextrose 5%-Lr IV Solution 1000 ML 1,000 ML IV SCH ×2 (09:57→18:15)
[2020-12-09 13:42] LABS: Appearance CLEAR (CLEAR); Bilirubin NEGATIVE (NEGATIVE); Blood NEGATIVE Ery/ul (0-5); Glucose NEGATIVE (NEGATIVE); Ketones NEGATIVE (NEGATIVE); Leukocyte Esterase NEGATIVE (NEGATIVE); Mucus SLIGHT /HPF (NEGATIVE); Nitrite NEGATIVE (NEGATIVE); Protein,Urine Dip 30 (Negative); Specific Gravity 1.019 (1.005-1.025); Urobilinogen 2 mg/dL (0-1)
[2020-12-09] MEDS: CEFAZOLIN 2 GM-D5W BAG** 2 GM/50 ML ML IV SCH (17:41)
[2020-12-09] MEDS: Colace 100 MG PO SCH (22:28)
[2020-12-10] MEDS: CEFAZOLIN 2 GM-D5W BAG** 2 GM/50 ML ML IV SCH (02:15)
[2020-12-10 05:39] LABS: BASOPHIL % 0.1 % (0.0-0.4); Basophil (Absolute #) 0.02 (0-0.4); Eosinophil % 0.7 % (0.00-5.0); Hemoglobin 9.2 gm/dl (12.0-16.0); Lymphocyte (Absolute #) 2.08 (1.0-4.6); Lymphocytes % 13.8 % (24.0-44.0); Mean Cell Volume 94.6 fl (78-100); Mean Corpuscular Hgb Concent. 30.7 g/dl (32-36); Mean Platelet Volume 9.7 fl (7.5-11.0); Monocyte (Absolute #) 1.12 (0.0-1.3); Monocytes % 7.4 % (0.0-12.0); Platelet Count 204 K/mm3 (150-450); Red Blood Count 3.17 M/mm3 (4.1-5.4); Red Cell Distribution Width 14.9 % (11.5-14.0); White Blood Count 15.1 K/mm3 (4.0-10.5)
[2020-12-10] MEDS ORDERED: Ambien 10 MG PO PRN (07:37)
[2020-12-10] MEDS ORDERED: Restoril 15 MG PO PRN (07:37)
[2020-12-10] MEDS ORDERED: NORCO 5/325 MG PO PRN (07:37)
[2020-12-10] MEDS ORDERED: ENOXAPARIN SODIUM SQ ONE (08:00)
--- NOTE | 2020-12-10 09:22 | OP ---
SURGERY DATE/TIME: 12/09/2020 0754 PREOPERATIVE DIAGNOSIS: Intrauterine at 39 weeks and 3 days with breech presentation. POSTOPERATIVE DIAGNOSIS: Intrauterine at 39 weeks and 3 days with breech presentation. PROCEDURE: Primary section, low flap transverse uterine incision, Pfannenstiel skin incision. SURGEON: Chris Alicae D.O. FLOOR COVERER: Kelton Denson, surgical endoscopist. ANESTHESIA: Spinal. ESTIMATED BLOOD LOSS: 1300 cc. COMPLICATIONS: None. INDICATIONS: The risks, benefits, indications and alternatives of the procedure were reviewed with the patient prior to procedure. The patient understood the risk of infection, bleeding, bowel injury, bladder injury, ureteral injury and incisional hernia, pelvic infection and clotting disorder associated with the surgery however desires to have this surgery as a possible means to alleviate her current medical condition. DESCRIPTION OF PROCEDURE AND FINDINGS: At this point the patient is taken to the operating room where her spinal anesthesia was found to adequate. She was then prepped and draped in normal sterile fashion in the dorsal supine position with a leftward tilt. A Pfannenstiel skin incision is made with a scalpel and carried through to the underlying layer of the fascia with a Bovie. The fascia was then incised in the midline and the incision extended laterally with Dominguez scissors. The superior aspect of the fascial incision was then grasped Anjana clamps elevated and the underlying rectus muscles dissected off bluntly. Attention is then turned to the inferior aspect of this incision which in similar fashion was grasped, tented up with the Anjana clamps and the rectus muscles dissected off bluntly. The rectus muscles were then at the midline and the peritoneum identified, tented up and entered sharply with Metzenbaum scissors. The peritoneal incision was then extended superiorly and inferiorly with good visualization of the bladder. The bladder blade was then inserted and the vesicouterine peritoneum identified. At this point the lower uterine segment was incised in transverse fashion with a scalpel. The uterine incision was then extended laterally with Dominguez scissors. The bladder blade was then removed and the 's buttocks was removed first, subsequently the lower extremities, subsequently the trunk and then finally the head. The nose and mouth were suctioned with bulb suction. The cord clamped and cut. The was then handed off to the awaiting nurses. The placenta was then removed manually. The uterus exteriorized and cleared of all clots and debris. The uterine incision was repaired with 1-0 chromic in a running locked fashion. A second layer of the same suture was used to obtain excellent hemostasis. At this point the uterus was then returned to the abdomen. The gutters were cleared of clots and the peritoneal muscle closed in interrupted fashion using 2-0 chromic suture. The fascia was re-approximated with 0 Vicryl in running fashion. The subcutaneous layer was closed with 3-0 Vicryl suture and the skin was closed with absorbable talya called INSORB. The patient tolerated the procedure well. Sponge, lap, needle and instrument counts were correct x2. The patient was then taken to the recovery room in stable condition. The patient delivered a live baby girl at 0818 hours. 's were 4, 6 and 8.
[2020-12-10] MEDS: Colace 100 MG PO SCH ×2 (09:50→09:53)
[2020-12-10] MEDS: FERREX 150 PO SCH ×2 (09:53→16:54)
[2020-12-10 20:59] VITALS: BP 133/80; PULSE 73; O2SAT 99
--- NOTE | 2020-12-10 23:02 | PCM.DCORD ---
- Discharge Disposition: Home, Self-Care Condition: Good Prescriptions: No Action Vits W-Ca,Fe,FA(<1Mg) [] 1 tab PO DAILY Additional Instructions: DR STANLEY NOTIFIED ABOUT UPDATE ON PT STATUS AND PTS REQUEST TO BE DISCHARGED HOME THIS EVENING DUE TO SHE WANTS TO GO SEE HER BABY THAT WAS TRANSFERRED YESTERDAY TO [place] DR STANLEY ORDERED THAT PT CAN BE DISCHARGED HOME PT TO COME FOR A FOLLOW UP VISIT 2 WEEKS AFTER DISCHARGE PT MAY TAKE OVER THE COUNTER EXTRA STRENGTH TYLENOL FOR INCISION PAIN AND TO CALL WITH ANY QUESTIONS OR CONCERNS PT EDUCATED ABOUT OB DISCHARGE INSTRUCTIONS AND TO RETURN TO THE OB UNIT TOMORROW MORNING TO FINISH THE CERTIFICATE DUE TO PATERNITY AFFIDAVIT WITH THE [facility] TO BE PRESENT WITH PAPERWORK. Follow up with: RENEE STANLEY DO [Primary Care Provider] - 2 weeks (PT TO FOLLOW UP DR PERALES NTMHENRIK WITH DR STANLEY 2 WEEKS AFTER DISCHARGE ) Forms: OB Discharge Instructions
--- NOTE | 2020-12-10 23:02 | PCM.DS ---
Discharge Summary Date of Admission: 12/09/20 05:10 Admitting Physician: RENEE STANLEY DO Consults: Consults on Case 12/09/20 05:00 Notify Anesthesia Provider ROUTINE Notify Physician OF ADMISSION Primary Care Provider: RENEE STANLEY DO Allergies Allergies ibuprofen Adverse Reaction (Intermediate, Verified 04/14/20 00:18) high fever and pass out Hospital Summary - Hospital Course Hospital Course: PT ADMITTED ON DECEMBER 09 FOR SCHEDULED PRIMARY CSECTION SECONDARY TO BREECH PRESENTATION AND WAS DONE SO WITHOUT COMPLICATION. DURING POSTOP PERIOD PT DID WELL WITH STABLE HGB AT 9.2 AND AT THIS TIME DESIRES TO BE DISCHARGED HOME SECONDARY TO BABY BEING TRANSFERRED TO [facility] FOR RESPIRATORY ISSUES. PT WAS ADVISED TO TAKE TYLENOL FOR PAIN MANAGEMENT AND WAS ADVISED TO FU IN OFFICE IN 2 WKS. - Vitals & Intake/Output Vital Signs: Vital Signs Temperature 97.5 F 12/10/20 20:15 Pulse Rate 73 12/10/20 20:15 Respiratory Rate 20 12/10/20 20:15 Blood Pressure 133/80 12/10/20 20:15 O2 Sat by Pulse Oximetry 99 12/10/20 20:15 Intake & Output: Intake & Output 12/08/20 12/09/20 12/10/20 12/11/20 11:59 11:59 11:59 11:59 Intake Total 4497 1850 Output Total 2150 Balance 2347 1850 Weight 112.491 kg - Lab Result Diagrams: 12/10/20 05:20 Lab Results-Last 24 Hrs: Lab Results-Last 24 Hours 12/10/20 Range/Units 05:20 WBC 15.1 H (4.0-10.5) K/mm3 RBC 3.17 L (4.1-5.4) M/mm3 Hgb 9.2 L (12.0-16.0) gm/dl Hct 30.0 L (35-47) % MCV 94.6 (78-100) fl MCH 29.0 (26-32) pg MCHC 30.7 L (32-36) g/dl RDW 14.9 H (11.5-14.0) % Plt Count 204 (150-450) K/mm3 MPV 9.7 (7.5-11.0) fl Gran % 78.0 H (36.0-66.0) % Eos # (Auto) 0.10 (0-0.5) Absolute Lymphs (auto) 2.08 (1.0-4.6) Absolute Monos (auto) 1.12 (0.0-1.3) Lymphocytes % 13.8 L (24.0-44.0) % Monocytes % 7.4 (0.0-12.0) % Eosinophils % 0.7 (0.00-5.0) % Basophils % 0.1 (0.0-0.4) % Absolute Granulocytes 11.80 H (1.4-6.9) Basophils # 0.02 (0-0.4) Micro Results-Entire Visit: Microbiology 12/09/20 13:17 Urine Culture - Preliminary Urine, Catheterized NO GROWTH TO DATE - Procedures and Test Procedures and Tests throughout Hospitalization: Therapy Orders & Screens 12/09/20 11:03 Standby ROUTINE Comment: Diagnosis: IUP Final Diagnosis/Problem List - Final Discharge Diagnosis/Problem (1) delivery delivered Status: Acute Code(s): O82 - ENCOUNTER FOR DELIVERY WITHOUT INDICATION - Discharge Disposition: Home, Self-Care Condition: Good Prescriptions: No Action Vits W-Ca,Fe,FA(<1Mg) [] 1 tab PO DAILY Additional Instructions: DR STANLEY NOTIFIED ABOUT UPDATE ON PT STATUS AND PTS REQUEST TO BE DISCHARGED HOME THIS EVENING DUE TO SHE WANTS TO GO SEE HER BABY THAT WAS TRANSFERRED YESTERDAY TO [address] DR STANLEY ORDERED THAT PT CAN BE DISCHARGED HOME PT TO COME FOR A FOLLOW UP VISIT 2 WEEKS AFTER DISCHARGE PT MAY TAKE OVER THE COUNTER EXTRA STRENGTH TYLENOL FOR INCISION PAIN AND TO CALL WITH ANY QUESTIONS OR CONCERNS PT EDUCATED ABOUT OB DISCHARGE INSTRUCTIONS AND TO RETURN TO THE OB UNIT TOMORRO W MORNING TO FINISH THE CERTIFICATE DUE TO PATERNITY AFFIDAVIT WITH THE [facility] TO BE PRESENT WITH PAPERWORK. Follow up with: RENEE STANLEY DO [Primary Care Provider] - 2 weeks (PT TO FOLLOW UP DR APPOINTMENT WITH DR STANLEY 2 WEEKS AFTER DISCHARGE ) Forms: OB Discharge Instructions
== END 2020-12-10 20:15 | disposition home or self-care (01) | DRG 788 ==
LOC: OB 05:10 → OBSVTOIN 05:10
PROVIDERS: ADMIT Obstetrics & Gynecology; ATTEND Obstetrics & Gynecology
PROC: 10D00Z1 Extraction of Products of Conception, Low, Open Approach (ICD-10-PCS; principal; 2020-12-09)
DX: O32.1XX0 Maternal care for breech presentation, not applicable or unspecified (principal); Z3A.39 39 weeks gestation of pregnancy; Z37.0 Single live birth
CPT/HCPCS: 36415; 59510; 64488; 76937; 76942; 80307; 81001; 85025; 85027; 85610; 85730; 86850; 86900; 86901; 87086; 94799; J0690; J1100; J1650; J2274; J2370; J2405; J2590; L0625; A9270-GY

== ENCOUNTER 2021-03-10 01:29 | Emergency (ER) | payer BC ==
[2021-03-10 02:37] LABS: Absolute Neutrophil Ct (ANC) 5.92 (1.4-6.9); Basophil (Absolute #) 0 (0-0.4); Eosinophil % 5.8 % (0.00-5.0); Eosinophil (Absolute #) 0.43 (0-0.5); Hematocrit 34.8 % (35-47); Lymphocyte (Absolute #) 0.45 (1.0-4.6); Lymphocytes % 6.1 % (24.0-44.0); Mean Cell Volume 84.9 fl (78-100); Mean Corpuscular Hemoglobin 26.8 pg (26-32); Mean Corpuscular Hgb Concent. 31.6 g/dl (32-36); Mean Platelet Volume 9.8 fl (7.5-11.0); Monocyte (Absolute #) 0.63 (0.0-1.3); Monocytes % 8.5 % (0.0-12.0); Neutrophil % 79.6 % (36.0-66.0); Platelet Count 245 K/mm3 (150-450); Red Cell Distribution Width 15.5 % (11.5-14.0); White Blood Count 7.4 K/mm3 (4.0-10.5)
[2021-03-10] MEDS ORDERED: TYLENOL 325 MG ONE (02:40)
[2021-03-10] MEDS ORDERED: Sodium Chloride 0.9% 1000 ML 1,000 ML ONE (02:40)
[2021-03-10 02:42] LABS: Appearance CLOUDY (CLEAR); Bacteria FEW /HPF (NEGATIVE); Bilirubin NEGATIVE (NEGATIVE); Blood NEGATIVE Ery/ul (0-5); Epithelial Cells FEW /HPF (FEW); Glucose NEGATIVE (NEGATIVE); Ketones TRACE (NEGATIVE); Leukocyte Esterase LARGE (NEGATIVE); Mucus SLIGHT /HPF (NEGATIVE); Nitrite NEGATIVE (NEGATIVE); Protein,Urine Dip 30 (Negative); Specific Gravity 1.027 (1.005-1.025); Urobilinogen 4 mg/dL (0-1); WBC >100 /HPF (0-5)
[2021-03-10 02:43] LABS: ALBUMIN 4.4 g/dL (3.5-5.0); ALKALINE PHOSPHATASE 77 U/L (38-126); ANION GAP 15.8 MEQ/L (5-15); BLOOD UREA NITROGEN 10 mg/dL (7-17); CHLORIDE 102 mmol/L (98-107); Calcium 9.1 mg/dL (8.4-10.2); Carbon Dioxide 20 mmol/L (22-30); Creatinine 1 0.98 mg/dL (0.52-1.04); EST GLOMERULAR FILTRATION RATE > 60.0 ML/MIN; Glucose 99 mg/dL (74-106); Potassium 3.8 mmol/L (3.5-5.1); SGOT/AST 28 U/L (14-36); SGPT/ALT 16 U/L (0-35); SODIUM 134 mmol/L (137-145)
[2021-03-10] MEDS: Sodium Chloride 0.9% 1000 ML 1,000 ML IV STA (02:44)
[2021-03-10] MEDS: TYLENOL 325 MG PO STA (02:45)
--- NOTE | 2021-03-10 03:32 | ERPHSYRPT ---
- History of Present Illness Time Seen by Provider: 03/10/21 01:45 Historian: patient Patient Subjective Stated Complaint: . Triage Nursing Assessment: . Physician History: Patient is a 25-year-old female presents to emergency department with concerns of possible allergic reaction to the antibiotic she received for urinary tract infection. Patient states that she began vomiting at approximately 1145 yesterday evening. Patient states she has been having night sweats. Patient observed to be febrile. Symptoms have been constant. Patient has been on antibiotics for several days. Patient took Tylenol prior to arrival. Pain described as an ache that is located at the suprapubic right lower quadrant. Pain worse with palpation improved with rest. No trauma. Patient is febrile in our ED. Patient denies diarrhea. Patient admits to mild nausea and vomiting x1. She is 3 months . Delivery was via . No complications. Patient voices no other complaints concerns at this time. Timing/Duration: today Activities at Onset: none Quality: aching Abdominal Pain Onset Location: RLQ, suprapubic Pain Radiation: no radiation Severity of Pain-Max: moderate Severity of Pain-Current: mild Modifying Factors: Improves With: palpation Associated Symptoms: denies symptoms Previous symptoms: no prior history Allergies/Adverse Reactions: ibuprofen Adverse Reaction (Intermediate, Verified 03/10/21 02:00) high fever and pass out Hx Tetanus, Diphtheria Vaccination/Date Given: Yes Hx Influenza Vaccination/Date Given: Yes (fall 2019) Hx Pneumococcal Vaccination/Date Given: No Immunizations Up to Date: Yes Travel Risk - International Travel Have you traveled outside of the country in past 3 weeks: No - Coronavirus Screening Are you exhibiting any of the following symptoms?: Yes Symptoms: Fever, Vomiting/Diarrhea, Headaches/Body Aches/Fatigue - Vaccine Status Have you recieved a Covid-19 vaccination: No - Review of Systems Constitutional: No Symptoms, No Fever, No Chills Eyes: No Symptoms Ears, Nose, & Throat: No Symptoms Respiratory: No Symptoms, No Cough, No Dyspnea Cardiac: No Symptoms, No Chest Pain, No Edema, No Syncope Abdominal/Gastrointestinal: No Symptoms, No Abdominal Pain, No Nausea, No V omiting, No Diarrhea Genitourinary Symptoms: No Symptoms, No Dysuria Musculoskeletal: No Symptoms, No Back Pain, No Neck Pain Skin: No Symptoms, No Rash Neurological: No Symptoms, No Dizziness, No Focal Weakness, No Sensory Changes Psychological: No Symptoms Endocrine: No Symptoms Hematologic/Lymphatic: No Symptoms Immunological/Allergic: No Symptoms All Other Systems: Reviewed and Negative - Past Medical History Pertinent Past Medical History: No Neurological History: No Pertinent History ENT History: No Pertinent History Cardiac History: No Pertinent History Respiratory History: No Pertinent History Endocrine Medical History: No Pertinent History Musculoskeletal History: No Pertinent History GI Medical History: No Pertinent History History: No Pertinent History Psycho-Social History: Depression Female Reproductive Disorders: No Pertinent History Other Medical History: four previous pregnancies, 1 miscarriage, Post- depression - Past Surgical History Past Surgical History: Yes Neuro Surgical History: No Pertinent History Cardiac: No Pertinent History Respiratory: No Pertinent History Gastrointestinal: No Pertinent History Genitourinary: No Pertinent History Musculoskeletal: No Pertinent History Female Surgical History: Dilation & Curettage, Section - Social History Smoking Status: Current every day smoker How long have you smoked: 4 years Exposure to second hand smoke: Yes Drug Use: none Patient Lives Alone: No Significant Family History: no pertinent family hx - Female History Hx Now: (unknown) - Nursing Vital Signs Nursing Vital Signs: Initial Vital Signs Temperature 103.5 F 03/10/21 01:41 Pulse Rate 135 H 03/10/21 01:41 Respiratory Rate 20 03/10/21 01:41 Blood Pressure 118/65 03/10/21 01:41 O2 Sat by Pulse Oximetry 100 03/10/21 01:41 Pain Scale Pain Intensity 0 - Physical Exam General Appearance: no apparent distress, alert Eye Exam: PERRL/EOMI, eyes nml inspection Ears, Nose, Throat Exam: normal ENT inspection, pharynx normal, moist mucous membranes Neck Exam: normal inspection, non-tender, supple, full range of motion Respiratory Exam: normal breath sounds, lungs clear, No respiratory distress Cardiovascular Exam: regular rate/rhythm, normal heart sounds Gastrointestinal/Abdomen Exam: soft, tenderness, other (Periumbilical right lower quadrant tenderness to palpation.), No mass Back Exam: normal inspection, normal range of motion, No CVA tenderness, No vertebral tenderness Extremity Exam: normal inspection, normal range of motion, pelvis stable, other (Multiple bruises observed the bilateral lower extremity. Patient states she falls a lot which is normal for her.) Neurologic Exam: alert, 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, cooperative, normal mood/affect, sensation nml, No motor deficits Skin Exam: normal color, warm, dry Lymphatic Exam: No adenopathy SpO2 Interpretation: normal SpO2: 100 O2 Delivery: Room Air - Course Nursing assessment & vital signs reviewed: Yes - CT Exams Abdomen/Pelvis CT Interpretation: Tele-radiologist Report (All stones in gallbladder lumen. Splenomegaly no overt signs acute cholecystitis on CT scan. Remaining CT scan negative.) Ordered Tests: Active Orders 24 hr Category Date Time Status Coke Drawer STAT Care 03/10/21 02:07 Active IV Insertion STAT Care 03/10/21 02:06 Active Pulse Oximetry (ED) STAT Care 03/10/21 02:06 Active ABDOMEN AND PELVIS W CONTRAST [CT] Stat Exams 03/10/21 02:13 Taken BLOOD CULTURE Stat Lab 03/10/21 02:26 Received CBC W DIFF Stat Lab 03/10/21 02:19 Completed CMP Stat Lab 03/10/21 02:19 Completed CULTURE,URINE Stat Lab 03/10/21 02:35 Ordered HCG,QUALITATIVE URINE Stat Lab 03/10/21 02:45 Completed Lactic Acid Stat Lab 03/10/21 02:28 Completed UA W/RFX UR CULTURE Stat Lab 03/10/21 02:35 Completed Medication Summary Discontinued Medications Generic Name Dose Route Start Last Admin Trade Name Freq PRN Reason Stop Dose Admin Acetaminophen 975 mg 03/10/21 02:06 03/10/21 02:45 Tylenol 325 Mg PO 03/10/21 02:07 975 mg STAT STA Administration Acetaminophen Confirm 03/10/21 02:40 Tylenol 325 Mg Administered 03/10/21 02:41 Dose 975 mg .ROUTE .STK-MED ONE Ciprofloxacin Confirm 03/10/21 05:46 Cipro 500 Mg Administered 03/10/21 05:47 Dose 500 mg .ROUTE .STK-MED ONE Ciprofloxacin 500 mg 03/10/21 05:50 Cipro 500 Mg PO 03/10/21 05:51 ONCE STA Sodium Chloride 1,000 mls @ 999 mls/hr 03/10/21 02:06 03/10/21 02:44 Sodium Chloride 0.9% 1000 Ml IV 03/10/21 03:06 999 mls/hr .Q1H1M STA Administration Sodium Chloride Confirm 03/10/21 02:40 Sodium Chloride 0.9% 1000 Ml Administered 03/10/21 02:41 Dose 1,000 mls @ ud .ROUTE .STK-MED ONE Lab/Rad Data: Laboratory Result Diagrams 03/10/21 02:19 03/10/21 02:19 Laboratory Results 03/10/21 03/10/21 03/10/21 Range/Units 02:45 02:35 02:28 WBC (4.0-10.5) K/mm3 RBC (4.1-5.4) M/mm3 Hgb (12.0-16.0) gm/dl Hct (35-47) % MCV (78-100) fl MCH (26-32) pg MCHC (32-36) g/dl RDW (11.5-14.0) % Plt Count (150-450) K/mm3 MPV (7.5-11.0) fl Gran % (36.0-66.0) % Eos # (Auto) (0-0.5) Absolute Lymphs (auto) (1.0-4.6) Absolute Monos (auto) (0.0-1.3) Lymphocytes % (24.0-44.0) % Monocytes % (0.0-12.0) % Eosinophils % (0.00-5.0) % Basophils % (0.0-0.4) % Absolute Granulocytes (1.4-6.9) Basophils # (0-0.4) Sodium (137-145) mmol/L Potassium (3.5-5.1) mmol/L Chloride (98-107) mmol/L Carbon Dioxide (22-30) mmol/L Anion Gap (5-15) MEQ/L BUN (7-17) mg/dL Creatinine (0.52-1.04) mg/dL Estimated GFR ML/MIN Glucose (74-106) mg/dL Lactic Acid 0.8 (0.4-2.0) Calcium (8.4-10.2) mg/dL Total Bilirubin (0.2-1.3) mg/dL AST (14-36) U/L ALT (0-35) U/L Alkaline Phosphatase (38-126) U/L Serum Total Protein (6.3-8.2) g/dL Albumin (3.5-5.0) g/dL Urine Color YELLOW (YELLOW) Urine Appearance CLOUDY (CLEAR) Urine pH 5.0 (5-6) Ur Specific Craig 1.027 (1.005-1.025) Urine Protein 30 (Negative) Urine Ketones TRACE (NEGATIVE) Urine Blood NEGATIVE (0-5) John Paul/ul Urine Nitrite NEGATIVE (NEGATIVE) Urine Bilirubin NEGATIVE (NEGATIVE) Urine Urobilinogen 4 (0-1) mg/dL Ur Leukocyte Esterase LARGE (NEGATIVE) Urine WBC (Auto) >100 (0-5) /HPF Urine RBC (Auto) 6-10 (0-2) /HPF U Epithel Cells (Auto) FEW (FEW) /HPF Urine Bacteria (Auto) FEW (NEGATIVE) /HPF Urine Mucus (Auto) SLIGHT (NEGATIVE) /HPF Urine Culture Reflexed NO (NO) Urine Glucose NEGATIVE (NEGATIVE) mg/dL Urine HCG, Qual NEGATIVE (Negative) Slides for Path Review 03/10/21 03/10/21 Range/Units 02:19 02:19 WBC 7.4 (4.0-10.5) K/mm3 RBC 4.10 (4.1-5.4) M/mm3 Hgb 11.0 L (12.0-16.0) gm/dl Hct 34.8 L (35-47) % MCV 84.9 (78-100) fl MCH 26.8 (26-32) pg MCHC 31.6 L (32-36) g/dl RDW 15.5 H (11.5-14.0) % Plt Count 245 (150-450) K/mm3 MPV 9.8 (7.5-11.0) fl Gran % 79.6 H (36.0-66.0) % Eos # (Auto) 0.43 (0-0.5) Absolute Lymphs (auto) 0.45 L (1.0-4.6) Absolute Monos (auto) 0.63 (0.0-1.3) Lymphocytes % 6.1 L (24.0-44.0) % Monocytes % 8.5 (0.0-12.0) % Eosinophils % 5.8 H (0.00-5.0) % Basophils % 0.0 (0.0-0.4) % Absolute Granulocytes 5.92 (1.4-6.9) Basophils # 0 (0-0.4) Sodium 134 L (137-145) mmol/L Potassium 3.8 (3.5-5.1) mmol/L Chloride 102 (98-107) mmol/L Carbon Dioxide 20 L (22-30) mmol/L Anion Gap 15.8 H (5-15) MEQ/L BUN 10 (7-17) mg/dL Creatinine 0.98 (0.52-1.04) mg/dL Estimated GFR > 60.0 ML/MIN Glucose 99 (74-106) mg/dL Lactic Acid (0.4-2.0) Calcium 9.1 (8.4-10.2) mg/dL Total Bilirubin 0.10 L (0.2-1.3) mg/dL AST 28 (14-36) U/L ALT 16 (0-35) U/L Alkaline Phosphatase 77 (38-126) U/L Serum Total Protein 8.0 (6.3-8.2) g/dL Albumin 4.4 (3.5-5.0) g/dL Urine Color (YELLOW) Urine Appearance (CLEAR) Urine pH (5-6) Ur Specific Craig (1.005-1.025) Urine Protein (Negative) Urine Ketones (NEGATIVE) Urine Blood (0-5) John Paul/ul Urine Nitrite (NEGATIVE) Urine Bilirubin (NEGATIVE) Urine Urobilinogen (0-1) mg/dL Ur Leukocyte Esterase (NEGATIVE) Urine WBC (Auto) (0-5) /HPF Urine RBC (Auto) (0-2) /HPF U Epithel Cells (Auto) (FEW) /HPF Urine Bacteria (Auto) (NEGATIVE) /HPF Urine Mucus (Auto) (NEGATIVE) /HPF Urine Culture Reflexed (NO) Urine Glucose (NEGATIVE) mg/dL Urine HCG, Qual (Negative) Slides for Path Review YES - Progress Progress: improved Progress Note: Patient reassessed. She feels well. Tachycardia resolved. Fever resolved. Urinalysis shows a pyuria. CT scan shows gallstones in the gallbladder lumen without overt signs of acute cholecystitis on CT scan. No splenomegaly. Patient's pain is suprapubic/periumbilical slightly towards the right quadrant pain is not in the right upper quadrant. No leukocytosis. Lactic acid within normal limits. We pulled the culture and sensitivity report from [facility]. No organisms were isolated. We will treat potential UTI. Patient has pyuria in the urine. We will await our cultures. Was previously treated with Bactrim. 03/10/21 05:53 03/10/21 06:[address] Alicea. He agrees with the ciprofloxacin. A prescription was forwarded to patient's pharmacy. Patient will follow up with Dr. Gomez within 48 hours for reevaluation. Portions of this note were created with voice recognition technology. There may be grammatical, spelling, punctuation or sound alike errors Discussed with Dr.: Wero Will see patient in: office Counseled pt/family regarding: lab results, diagnosis, need for follow-up, rad results - Departure Departure Disposition: Home Clinical Impression: Fever, Abdominal pain, Tachycardia, Vomiting, Cholelithiasis, Splenomegaly, Pyuria Condition: Stable Critical Care Time: No Referrals: RENEE ALICEA DO [Primary Care Provider] - Additional Instructions: Discharge/Care Plan ANALY MCCORMICK was seen on 03/10/21 in the Emergency Room. The patient was counseled regarding Diagnosis,Lab results, Imaging studies, need for follow up and when to return to the Emergency Room. Prescriptions given: Discharge Note I have spoken with the patient and/or caregivers. I have explained the patient's condition, diagnosis and treatment plan based on the information available to me at this time. I have answered the patient's and/or caregiver's questions and addressed any concerns. The patient and/or caregivers have as good understanding of the patient's diagnosis, condition and treatment plan as can be expected at this point. The vital signs have been stable. The patient's condition is stable and appropriate for discharge from the emergency department. The patient will pursue further outpatient evaluation with the primary care physician or other designated or consulting physician as outlined in the discharge instructions. The patient and/or caregivers are agreeable to this plan of care and follow-up instructions have been explained in detail. The patient and/or caregivers have received these instruction. The patient/and or caregivers are aware that any significant change in condition or worsening of symptoms should prompt an immediate return to this or the closest emergency department or call 911. Prescriptions: Ciprofloxacin [Cipro 500 MG] 500 mg PO BID #14 tablet
[2021-03-10 03:56] LABS: Slide Review 1 YES
[2021-03-10] MEDS ORDERED: Cipro 500 MG ONE (05:46)
[2021-03-10] MEDS: Cipro 500 MG PO STA (05:52)
[2021-03-10 06:16] VITALS: BP 104/59; PULSE 88; O2SAT 98
--- NOTE | 2021-03-10 09:11 | XRAY ---
Indication: Fever, nausea, vomiting, diarrhea, and headache. Multiple contiguous axial images obtained through the abdomen and pelvis using 80 cc Isovue 370 contrast. Comparison: None. Lung bases are clear. Heart not enlarged. Noncontrasted stomach and bowel loops appear nonobstructed. There is mild/moderate diffuse scattered colonic fecal debris throughout. No free fluid/air. Mildly distended gallbladder with intraluminal sludge/debris and tiny cholesterol stones. No obvious gallbladder wall thickening, pericholecystic fluid, or biliary distention. Remaining liver, pancreas, spleen, adrenal glands, kidneys, ureters, bladder, and aorta are unremarkable. No pathologic retroperitoneal lymphadenopathy. Osseous structures intact with incidental L4 Schmorl node and bilateral L5 spondylolysis without spondylolisthesis. Impression: 1. Gallbladder sludge/debris and tiny cholesterol stones. Gallbladder sonogram may yield further information. 2. Diffuse fecal stasis. 3. Incidental L4 Schmorl node and L5 spondylolysis without spondylolisthesis Comment: Preliminary interpretation made by C. No critical discrepancy.
== END 2021-03-10 06:10 | disposition home or self-care (01) ==
LOC: ED 01:29
DX: R10.31 Right lower quadrant pain (principal); R19.7 Diarrhea, unspecified; R51.9 Headache, unspecified; R53.83 Other fatigue; R50.9 Fever, unspecified; R11.10 Vomiting, unspecified; K80.20 Calculus of gallbladder without cholecystitis without obstruction; R16.1 Splenomegaly, not elsewhere classified; R82.81 Pyuria; R00.0 Tachycardia, unspecified
CPT/HCPCS: 36000; 36415; 74177; 80053; 81001; 83605; 84703; 85025; 87040; 87086; 93041; 94760; 96360; 99284; A9270-GY

== ENCOUNTER 2021-11-17 22:57 | Emergency (ER) | payer OTHER ==
[2021-11-17] MEDS ORDERED: Sodium Chloride 0.9% 1000 ML 1,000 ML IV STA (23:28)
[2021-11-17] MEDS ORDERED: Pepcid 20 MG VIAL IV ONE (23:28)
[2021-11-17] MEDS ORDERED: TYLENOL 325 MG PO ONE (23:28)
[2021-11-17] MEDS ORDERED: GI COCKTAIL 45 ML (Maalox/Lidocaine) PO ONE (23:28)
--- NOTE | 2021-11-17 23:37 | ERPHSYRPT ---
- History of Present Illness Time Seen by Provider: 11/17/21 23:18 Historian: patient Exam Limitations: no limitations Patient Subjective Stated Complaint: Midsternal chest pain that began 11/16/21. Pain worse with lying down and radiates to back. Triage Nursing Assessment: Pt alert and oriented x 4. Skin color WNL. Respirations unlabored. Lung sounds clear throughout. Heart sounds S1, S2 present. Patient does report hx of acid reflux. No edema. Physician History: 26 years old 6 para 4 at 27 weeks gestation presented in ER with chief complaint of substernal chest pain radiating to the back intermittent since yesterday mild to moderate intensity, dull aching, aggravated with lying down, associated with nausea but no vomiting. Denies any shortness of breath. Denies any abdominal/pelvic pressure, vaginal bleeding or discharge. Timing/Duration: yesterday, intermittent, improved Activities at Onset: rest Quality: dullness Location: central, epigastric Chest Pain Radiation: back Severity of Pain-Max: moderate Severity of Pain-Current: mild Modifying Factors: Worsens With: lying down Associated Symptoms: nausea Prior Chest Pain/Cardiac Workup: no prior chest pain, no prior cardiac workup Nitro Today/Relief: no nitro taken today Aspirin Treatment Today: no aspirin today Allergies/Adverse Reactions: ibuprofen Adverse Reaction (Intermediate, Verified 11/17/21 23:18) high fever and pass out Hx Tetanus, Diphtheria Vaccination/Date Given: Yes Hx Influenza Vaccination/Date Given: Yes (fall 2019) Hx Pneumococcal Vaccination/Date Given: No Immunizations Up to Date: Yes Travel Risk - International Travel Have you traveled outside of the country in past 3 weeks: No - Coronavirus Screening Are you exhibiting any of the following symptoms?: No - Vaccine Status Have you recieved a Covid-19 vaccination: Yes Multiple Wire Sawyer: Spangle - Vaccination Dates Date of 2cond Vaccination (if applicable): June 2021 - Review of Systems Constitutional: No Symptoms Eyes: No Symptoms Ears, Nose, & Throat: No Symptoms Respiratory: No Symptoms Cardiac: Chest Pain Abdominal/Gastrointestinal: Nausea Genitourinary Symptoms: Musculoskeletal: No Symptoms Skin: No Symptoms Neurological: No Symptoms Psychological: Anxiety Endocrine: No Symptoms Hematologic/Lymphatic: No Symptoms Immunological/Allergic: No Symptoms - Past Medical History Pertinent Past Medical History: No Neurological History: No Pertinent History ENT History: No Pertinent History Cardiac History: No Pertinent History Respiratory History: No Pertinent History Endocrine Medical History: No Pertinent History Musculoskeletal History: No Pertinent History GI Medical History: No Pertinent History History: No Pertinent History Psycho-Social History: Depression Female Reproductive Disorders: No Pertinent History Other Medical History: AB1 - Past Surgical History Past Surgical History: Yes Neuro Surgical History: No Pertinent History Cardiac: No Pertinent History Respiratory: No Pertinent History Gastrointestinal: No Pertinent History Genitourinary: No Pertinent History Musculoskeletal: No Pertinent History Female Surgical History: Dilation & Curettage, Section Other Surgical History: x 1 - Social History Smoking Status: Former smoker How long have you smoked: 4 years Exposure to second hand smoke: No Drug Use: none Patient Lives Alone: No Significant Family History: no pertinent family hx - Female History Hx Now: Yes Expected Date of Delivery: 02/12/22 - Nursing Vital Signs Nursing Vital Signs: Initial Vital Signs Pulse Rate 112 H 11/17/21 23:05 Respiratory Rate 16 11/17/21 23:05 Blood Pressure 133/96 11/17/21 23:05 O2 Sat by Pulse Oximetry 98 11/17/21 23:05 Pain Scale Pain Intensity 5 - Physical Exam General Appearance: no apparent distress, alert, anxiety Eye Exam: PERRL/EOMI, eyes nml inspection Ears, Nose, Throat Exam: normal ENT inspection, TMs normal, pharynx normal, m oist mucous membranes Neck Exam: normal inspection, non-tender, supple, full range of motion Respiratory Exam: normal breath sounds, lungs clear Cardiovascular Exam: normal heart sounds, tachycardia Gastrointestinal/Abdomen Exam: soft, normal bowel sounds, other (Gravid uterus), No tenderness Back Exam: normal inspection, normal range of motion Extremity Exam: normal inspection, normal range of motion, No calf tenderness, No charmaine's sign Neurologic Exam: alert, 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, cooperative Skin Exam: normal color SpO2 Interpretation: normal SpO2: 98 O2 Delivery: Room Air - Course EKG Interpreted by Me: RATE (125), Sinus Tach, NORMAL AXIS, NORMAL INTERVALS, NORMAL QRS Ordered Tests: Active Orders 24 hr Category Date Time Status Oven Builder STAT Care 11/17/21 23:19 Active EKG-ER Only STAT Care 11/17/21 23:19 Active IV Insertion STAT Care 11/17/21 23:19 Active CHEST 1 VIEW (PORTABLE) Stat Exams 11/17/21 23:28 Ordered CHEST WITH CONTRAST [CT] Stat Exams 11/18/21 00:22 Ordered CBC W DIFF Stat Lab 11/17/21 23:25 Completed CMP Stat Lab 11/17/21 23:25 Completed D-DIMER QUANTITATIVE Stat Lab 11/17/21 23:25 Completed HCG,QUALITATIVE URINE Stat Lab 11/17/21 23:19 Ordered NT PRO BNP Stat Lab 11/17/21 23:25 Completed TROPONIN Q3H Lab 11/17/21 23:25 Completed TROPONIN Q3H Lab 11/18/21 02:30 Ordered TROPONIN Q3H Lab 11/18/21 05:30 Ordered TROPONIN Q3H Lab 11/18/21 08:30 Ordered TROPONIN Q3H Lab 11/18/21 11:30 Ordered UA W/RFX UR CULTURE Stat Lab 11/18/21 00:31 Ordered Medication Summary Discontinued Medications Generic Name Dose Route Start Last Admin Trade Name Freq PRN Reason Stop Dose Admin Acetaminophen 650 mg 11/17/21 23:28 Acetaminophen 325 Mg Tablet PO 11/17/21 23:29 STAT ONE Famotidine 20 mg 11/17/21 23:28 Famotidine 20 Mg/1 Vial IV 11/17/21 23:29 STAT ONE Sodium Chloride 1,000 mls @ 999 mls/hr 11/17/21 23:28 Sodium Chloride 0.9% 1000 Ml IV 11/18/21 00:28 .Q1H1M STA Magnesium Hydroxide 45 ml 11/17/21 23:28 Mag Hydrx/Alum Hyd/Simeth/Lido 45 Ml Bottle PO 11/17/21 23:29 STAT ONE Lab/Rad Data: Laboratory Result Diagrams 11/17/21 23:25 11/17/21 23:25 Laboratory Results 11/17/21 11/17/21 11/17/21 Range/Units 23:25 23:25 23:25 WBC (4.0-10.5) K/mm3 RBC (4.1-5.4) M/mm3 Hgb (12.0-16.0) gm/dl Hct (35-47) % MCV (78-100) fl MCH (26-32) pg MCHC (32-36) g/dl RDW (11.5-14.0) % Plt Count (150-450) K/mm3 MPV (7.5-11.0) fl Gran % (36.0-66.0) % Eos # (Auto) (0-0.5) Absolute Lymphs (auto) (1.0-4.6) Absolute Monos (auto) (0.0-1.3) Lymphocytes % (24.0-44.0) % Monocytes % (0.0-12.0) % Eosinophils % (0.00-5.0) % Basophils % (0.0-0.4) % Absolute Granulocytes (1.4-6.9) Basophils # (0-0.4) D-Dimer 959 H* (215-500) ng/mL Sodium 135 L (137-145) mmol/L Potassium 3.8 (3.5-5.1) mmol/L Chloride 103 (98-107) mmol/L Carbon Dioxide 22 (22-30) mmol/L Anion Gap 14.4 (5-15) MEQ/L BUN 6 L (7-17) mg/dL Creatinine 0.48 L (0.52-1.04) mg/dL Estimated GFR > 60.0 ML/MIN Glucose 87 (74-106) mg/dL Calcium 9.2 (8.4-10.2) mg/dL Total Bilirubin 0.30 (0.2-1.3) mg/dL AST 20 (14-36) U/L ALT 15 (0-35) U/L Alkaline Phosphatase 88 (38-126) U/L Troponin I < 0.012 (0.000-0.034) ng/mL NT-Pro-B Natriuret Pep 52.1 (0-450) pg/mL Serum Total Protein 7.3 (6.3-8.2) g/dL Albumin 3.7 (3.5-5.0) g/dL 11/17/21 Range/Units 23:25 WBC 14.2 H (4.0-10.5) K/mm3 RBC 3.92 L (4.1-5.4) M/mm3 Hgb 10.8 L (12.0-16.0) gm/dl Hct 33.7 L (35-47) % MCV 86.0 (78-100) fl MCH 27.6 (26-32) pg MCHC 32.0 (32-36) g/dl RDW 15.0 H (11.5-14.0) % Plt Count 300 (150-450) K/mm3 MPV 9.6 (7.5-11.0) fl Gran % 76.0 H (36.0-66.0) % Eos # (Auto) 0.39 (0-0.5) Absolute Lymphs (auto) 2.06 (1.0-4.6) Absolute Monos (auto) 0.96 (0.0-1.3) Lymphocytes % 14.5 L (24.0-44.0) % Monocytes % 6.7 (0.0-12.0) % Eosinophils % 2.7 (0.00-5.0) % Basophils % 0.1 (0.0-0.4) % Absolute Granulocytes 10.80 H (1.4-6.9) Basophils # 0.02 (0-0.4) D-Dimer (215-500) ng/mL Sodium (137-145) mmol/L Potassium (3.5-5.1) mmol/L Chloride (98-107) mmol/L Carbon Dioxide (22-30) mmol/L Anion Gap (5-15) MEQ/L BUN (7-17) mg/dL Creatinine (0.52-1.04) mg/dL Estimated GFR ML/MIN Glucose (74-106) mg/dL Calcium (8.4-10.2) mg/dL Total Bilirubin (0.2-1.3) mg/dL AST (14-36) U/L ALT (0-35) U/L Alkaline Phosphatase (38-126) U/L Troponin I (0.000-0.034) ng/mL NT-Pro-B Natriuret Pep (0-450) pg/mL Serum Total Protein (6.3-8.2) g/dL Albumin (3.5-5.0) g/dL - Progress Progress: improved Air Movement: good Progress Note: 11/18/21 26 years old is evaluated for intermittent chest pain since yesterday. She is given fluids and symptomatic treatment with Pepcid/GI cocktail and Tylenol, on reevaluation pain is improved. Patient was tachycardic on presentation and EKG showed sinus tach. Has negative initial troponin. Grossly unremarkable chemistries. White count 14. Has elevated D-dimer, went over in detail about risk and benefits of CTA chest and she wants to proceed with it. Her pain seems to be more of GERD with esophagitis. To start her on Protonix. OB nurse has evaluated patient and has good heart tone with good movements and no contractions. I have discussed with Dr. STANLEY who recommended outpatient follow-up in the next few days. Blood Culture(s) Obtained: No Antibiotics given: No Discussed with : Wero Counseled pt/family regarding: lab results, diagnosis, need for follow-up, rad results - Departure Clinical Impression: Chest pain during , GERD with esophagitis Condition: Stable Critical Care Time: No Referrals: DOCTOR,NO FAMILY [Primary Care Provider] - Follow up/PCP as directed RENEE STANLEY DO [ACTIVE STAFF] - Follow up/PCP as directed (Call tomorrow for reevaluation) EVERT BLAIR MD [ACTIVE STAFF] - Follow up/PCP as directed (1-2 days for reevaluation) Instructions: Angina (DC), Acid Reflux (Gastroesophageal Reflux Disease) During Additional Instructions: Follow-up with primary care and your OB for reevaluation in the next 1 to 2 days. Return to ER for worsening chest pain palpitations or shortness of breath. Drink plenty of fluids to keep yourself well-hydrated. Prescriptions: Famotidine 20 mg [Pepcid 20 MG] 20 mg PO BID #60 tablet
[2021-11-17 23:38] LABS: Basophil (Absolute #) 0.02 (0-0.4); Eosinophil % 2.7 % (0.00-5.0); Eosinophil (Absolute #) 0.39 (0-0.5); Hematocrit 33.7 % (35-47); Hemoglobin 10.8 gm/dl (12.0-16.0); Lymphocyte (Absolute #) 2.06 (1.0-4.6); Lymphocytes % 14.5 % (24.0-44.0); Mean Corpuscular Hemoglobin 27.6 pg (26-32); Mean Platelet Volume 9.6 fl (7.5-11.0); Monocyte (Absolute #) 0.96 (0.0-1.3); Monocytes % 6.7 % (0.0-12.0); Platelet Count 300 K/mm3 (150-450); Red Blood Count 3.92 M/mm3 (4.1-5.4); White Blood Count 14.2 K/mm3 (4.0-10.5)
[2021-11-17 23:56] LABS: ALBUMIN 3.7 g/dL (3.5-5.0); ALKALINE PHOSPHATASE 88 U/L (38-126); ANION GAP 14.4 MEQ/L (5-15); BLOOD UREA NITROGEN 6 mg/dL (7-17); CHLORIDE 103 mmol/L (98-107); Calcium 9.2 mg/dL (8.4-10.2); Carbon Dioxide 22 mmol/L (22-30); Creatinine 1 0.48 mg/dL (0.52-1.04); EST GLOMERULAR FILTRATION RATE > 60.0 ML/MIN; Glucose 87 mg/dL (74-106); NT PRO BNP 52.1 pg/mL (0-450); Potassium 3.8 mmol/L (3.5-5.1); SGOT/AST 20 U/L (14-36); SGPT/ALT 15 U/L (0-35); SODIUM 135 mmol/L (137-145); Total Protein 7.3 g/dL (6.3-8.2)
[2021-11-18] MEDS ORDERED: TYLENOL 325 MG ONE (00:49)
[2021-11-18] MEDS ORDERED: Pepcid 20 MG VIAL IV ONE (00:49)
[2021-11-18] MEDS ORDERED: XYLOCAINE HCl Viscous ONE (00:50)
[2021-11-18] MEDS ORDERED: Sodium Chloride 0.9% 1000 ML 1,000 ML ONE (00:50)
[2021-11-18] MEDS ORDERED: XYLOCAINE HCl Viscous MM ONE (00:50)
[2021-11-18] MEDS ORDERED: MAALOX ES 30 ML UNIT DOSE ONE (00:50)
[2021-11-18 01:51] LABS: Epithelial Cells RARE /HPF (FEW)
[2021-11-18 01:54] LABS: Appearance CLEAR (CLEAR); Bilirubin NEGATIVE (NEGATIVE); Dipstick done @ ? MAIN LAB; Glucose NEGATIVE (NEGATIVE); Ketones NEGATIVE (NEGATIVE); Nitrite NEGATIVE (NEGATIVE); Protein,Urine Dip NEGATIVE (Negative); RBC NEGATIVE Ery/ul (0-5); Urobilinogen 0.2 mg/dL (0-1)
[2021-11-18 01:55] LABS: Urine Cultured Indicated? NO
[2021-11-18 02:59] VITALS: BP 134/80; PULSE 76; O2SAT 99
--- NOTE | 2021-11-18 08:59 | XRAY ---
Indication: Chest pain. Elevated d-dimer. 27 weeks . Multiple contiguous axial images obtained through the chest using 100 cc Isovue 370 contrast and PE protocol. Given known , the ordering clinician, Dr. Schaeffer obtained consent for the contrast exam. Comparison: January 08, 2020 There is good opacification of the pulmonary arteries. However mild respiration artifact limits evaluation of the lobar and segmental branches. No obvious pulmonary embolus. Heart is not enlarged. Aorta is normal in course and caliber. No pathologic mediastinal/hilar lymphadenopathy. Lungs demonstrates new 9 mm indeterminant peripheral left upper lobe noncalcified nodule. No infiltrate, effusion, or pneumothorax. Bony thorax intact. Limited upper abdomen demonstrates mild fatty liver and 13.2 cm splenomegaly. Impression: 1. Pulmonary embolus evaluation limited by respiration artifact. No obvious pulmonary embolus. 2. New subcentimeter indeterminant left upper lobe noncalcified nodule. Recommend follow-up per Fleischner guidelines. 3. Incidental fatty liver and splenomegaly. Comment: Preliminary interpretation made by [facility]. No critical discrepancy.
== END 2021-11-18 02:59 | disposition home or self-care (01) ==
LOC: ED 22:57
DX: O26.892 Other specified pregnancy related conditions, second trimester (principal); O99.612 Diseases of the digestive system complicating pregnancy, second trimester; Z3A.27 27 weeks gestation of pregnancy; R07.9 Chest pain, unspecified; K21.00 Gastro-esophageal reflux disease with esophagitis, without bleeding; R11.0 Nausea; R10.13 Epigastric pain
CPT/HCPCS: 36000; 36415; 71260; 80053; 81015; 83880; 84484; 84703; 85025; 85379; 93005; 93041; 96374; 99284; A9270-GY

== ENCOUNTER 2021-12-17 21:02 | Observation (INO) | payer OTHER ==
[2021-12-17 22:27] LABS: Appearance CLEAR (CLEAR); Bilirubin NEGATIVE (NEGATIVE); Dipstick done @ ? MAIN LAB; Glucose NEGATIVE (NEGATIVE); Ketones NEGATIVE (NEGATIVE); Nitrite NEGATIVE (NEGATIVE); Protein,Urine Dip NEGATIVE (Negative); RBC NEGATIVE Ery/ul (0-5); Urobilinogen 0.2 mg/dL (0-1)
[2021-12-17 22:35] LABS: Epithelial Cells RARE /HPF (FEW); RBC 0-2 /HPF (0-2)
[2021-12-17 22:37] LABS: Amphetamine,Urine NEGATIVE (NEGATIVE); Barbiturate,Urine NEGATIVE (NEGATIVE); Benzodiazepine,Urine NEGATIVE (NEGATIVE); Cocaine,Urine NEGATIVE (NEGATIVE); Methadone,Urine NEGATIVE (NEGATIVE); Opiate,Urine NEGATIVE (NEGATIVE); PCP,Urine NEGATIVE (NEGATIVE); THC,Urine NEGATIVE (NEGATIVE); Urine Cultured Indicated? YES
[2021-12-17 23:42] VITALS: BP 136/81; PULSE 82
== END 2021-12-17 23:28 | disposition home or self-care (01) ==
LOC: OB 21:02
PROVIDERS: ADMIT Obstetrics & Gynecology; ATTEND Obstetrics & Gynecology
DX: Z34.83 Encounter for supervision of other normal pregnancy, third trimester (principal); Z3A.31 31 weeks gestation of pregnancy
CPT/HCPCS: 80307; 81015; 87086; 99213; G0378

== ENCOUNTER 2022-01-10 20:16 | Emergency (ER) | payer OTHER | END 2022-01-10 20:50 | disposition left against medical advice (07) | LOC: ED 20:16 | DX: Z53.21 Procedure and treatment not carried out due to patient leaving prior to being seen by health care provider (principal) ==

== ENCOUNTER 2022-01-21 15:58 | Emergency (ER) | payer OTHER ==
--- NOTE | 2022-01-21 16:23 | ERPHSYRPT ---
- History of Present Illness Source: patient Exam Limitations: no limitations Patient Subjective Stated Complaint: pt here for an abscess to right arm pit for 2 weeks now, no drainage Triage Nursing Assessment: pt alert, resp easy, skin w/d/p, has abscess under right arm no drainage noted Physician History: R axillary abscess x 2 weeks. Pt has a h/o axillary abscess in past. She denies fever/trauma. Pt is 37wks . Timing/Duration: other (2 wks) Quality: painful Severity: mild Location: axillary (R) Possible Causes: other (Probable staph) Associated Symptoms: swelling/mass/lumps, No blisters, No change in skin texture, No difficulty breathing, No edema, No fever, No flushing, No headache, No hives, No jaundice, No malaise, No nasal congestion, No numbness, No pallor, No paresthesia, No petechiae, No rash, No sore throat, No tingling Allergies/Adverse Reactions: ibuprofen Adverse Reaction (Intermediate, Verified 01/21/22 16:12) Lightheadedness high fever and pass out Home Medications: Pnv No.103/Folic/Om3s/Fish Oil [ Gummies] 1 each PO DAILY 12/17/21 [History] Hx Tetanus, Diphtheria Vaccination/Date Given: Yes Hx Influenza Vaccination/Date Given: Yes (fall 2019) Hx Pneumococcal Vaccination/Date Given: No Immunizations Up to Date: Yes Travel Risk - International Travel Have you traveled outside of the country in past 3 weeks: No - Coronavirus Screening Are you exhibiting any of the following symptoms?: No Close contact with a COVID-19 positive Pt in past 14-21 Days: No - Vaccine Status Have you recieved a Covid-19 vaccination: Yes Pathology Supervisor: BUX - Vaccination Dates Date of 2cond Vaccination (if applicable): 06/2021 - Review of Systems Constitutional: No Symptoms Eyes: No Symptoms Ears, Nose, & Throat: No Symptoms Respiratory: No Symptoms Cardiac: No Symptoms Abdominal/Gastrointestinal: No Symptoms Genitourinary Symptoms: No Symptoms Musculoskeletal: No Symptoms Skin: Skin Lesions (R axilla ) Neurological: No Symptoms Psychological: No Symptoms Endocrine: No Symptoms Hematologic/Lymphatic: No Symptoms Immunological/Allergic: No Symptoms - Past Medical History Pertinent Past Medical History: No Neurological History: No Pertinent History ENT History: No Pertinent History Cardiac History: No Pertinent History Respiratory History: No Pertinent History Endocrine Medical History: No Pertinent History Musculoskeletal History: No Pertinent History GI Medical History: No Pertinent History History: No Pertinent History Psycho-Social History: Depression Female Reproductive Disorders: No Pertinent History Other Medical History: AB1 - Past Surgical History Past Surgical History: Yes Neuro Surgical History: No Pertinent History Cardiac: No Pertinent History Respiratory: No Pertinent History Gastrointestinal: No Pertinent History Genitourinary: No Pertinent History Musculoskeletal: No Pertinent History Female Surgical History: Dilation & Curettage, Section Other Surgical History: x 1 - Social History Smoking Status: Former smoker How long have you smoked: 3yrs Exposure to second hand smoke: No Drug Use: none Patient Lives Alone: No Significant Family History: no pertinent family hx - Female History Hx Last Menstrual Period: may 08 Hx Now: Yes Expected Date of Delivery: 02/12/22 - Nursing Vital Signs Nursing Vital Signs: Initial Vital Signs Temperature 97.0 F 01/21/22 16:08 Pulse Rate 122 H 01/21/22 16:08 Respiratory Rate 18 01/21/22 16:08 Blood Pressure 133/93 01/21/22 16:08 O2 Sat by Pulse Oximetry 97 01/21/22 16:08 Pain Scale Pain Intensity 5 - Physical Exam General Appearance: no apparent distress Eye Exam: PERRL/EOMI, eyes nml inspection Ears, Nose, Throat Exam: normal ENT inspection, TMs normal, pharynx normal, moist mucous membranes Neck Exam: normal inspection, non-tender, supple, full range of motion, No meningismus, No mass, No Brudzinski, No Kernig's Respiratory Exam: normal breath sounds, lungs clear, airway intact Cardiovascular Exam: regular rate/rhythm, normal heart sounds, normal peripheral pulses, capillary refill <2 sec, No murmur Gastrointestinal/Abdomen Exam: soft, normal bowel sounds, other (37 wks ), No tenderness Back Exam: normal inspection, normal range of motion Extremity Exam: normal inspection, normal range of motion Neurologic Exam: alert, 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, cooperative, allergist/pediatric pulmonologist II-XII nml as tested, normal mood/affect, sensation nml Skin Exam: other (Very small, early axillary lesion, most likely an early abscess which does not need incision/drainage at this time) SpO2 Interpretation: normal SpO2: 97 O2 Delivery: Room Air - Course Nursing assessment & vital signs reviewed: Yes - Progress Counseled pt/family regarding: diagnosis, need for follow-up - Departure Departure Disposition: Home Clinical Impression: Axillary abscess Condition: Stable Critical Care Time: No Referrals: DOCTOR,NO FAMILY [Primary Care Provider] - Follow up/PCP as directed Instructions: Link ([facility]) Additional Instructions: Warm compresses Start Keflex three times a day for 1 week Return to ER for increasing redness/swelling/temperature greater than 100.5 Prescriptions: Cephalexin Mh 500 mg [Keflex 500 mg] 500 mg PO TID #21 cap
[2022-01-21 16:24] VITALS: O2SAT 97
[2022-01-21 16:34] VITALS: BP 120/76; PULSE 119
== END 2022-01-21 16:34 | disposition home or self-care (01) ==
LOC: ED 15:58
DX: L02.411 Cutaneous abscess of right axilla (principal); Z33.1 Pregnant state, incidental
CPT/HCPCS: 99283

== ENCOUNTER 2022-01-31 21:44 | Emergency (ER) | payer OTHER ==
[2022-01-31 22:12] VITALS: O2SAT 100
[2022-01-31] MEDS ORDERED: Sodium Chloride 0.9% 1000 ML 1,000 ML IV STA (22:20)
[2022-01-31] MEDS ORDERED: TYLENOL 325 MG PO ONE (22:20)
[2022-01-31] MEDS ORDERED: Sodium Chloride 0.9% 1000 ML 1,000 ML ONE (22:32)
[2022-01-31] MEDS ORDERED: TYLENOL 325 MG ONE (22:32)
--- NOTE | 2022-01-31 22:36 | ERPHSYRPT ---
- History of Present Illness Time Seen by Provider: 01/31/22 21:55 Source: patient Exam Limitations: no limitations Patient Subjective Stated Complaint: pt states "I was walking down the stairs with a bucket of water when I hear my ankle pop. I fell face first and landed on my belly." Triage Nursing Assessment: pt ambulated into the er; pt is axo x4; c/o ankle injury; pt states 6/10 pain to left ankle; pt is 37 weeks gestation; pt states that she can not feel the baby move since the fall; left ankle has swelling to the outer portion; tenderness present with palpitation; strong left pedal pulse; fht 130s; hypertensive; abrasions to danial knees Physician History: 26 years old 6 para 4 at 37 weeks gestation presented in the ER with chief complaint of fall. Patient reports she was going down the stairs with a water bucket in her hand, bent her ankle with a popping sound and felt forward, landed on right side of belly. This happened almost an hour prior to arrival and since then patient is unable to feel movements. Denies any vaginal bleeding or leakage of fluid. Denies any abdominal pain. She is complaining of dull aching moderate pain in the left ankle with some swelling and also has jono kavitha right knee with minimal discomfort. Patient is able to walk on left ankle. She is concerned about her fetus. Patient is placed on monitor without any contractions and heart tones ranging between 130s to 160s. Timing/Duration: hour(s) (1), sudden Severity of Pain-Max: none Severity of Pain-Current: none Sexual intercourse history: non-contributory, other Modifying Factors: Improves With: nothing Associated Symptoms: , No abdominal pain, No urinary frequency, No loss of bladder control, No lower back pain, No vaginal discharge, No vaginal fluid leakage Allergies/Adverse Reactions: ibuprofen Adverse Reaction (Intermediate, Verified 01/21/22 16:12) Lightheadedness high fever and pass out Home Medications: Pnv No.103/Folic/Om3s/Fish Oil [ Gummies] 1 each PO DAILY 12/17/21 [History] Ferrous Sulfate 325 mg PO 01/31/22 [History] Hx Tetanus, Diphtheria Vaccination/Date Given: Yes Hx Influenza Vaccination/Date Given: No Hx Pneumococcal Vaccination/Date Given: No Travel Risk - International Travel Have you traveled outside of the country in past 3 weeks: No - Coronavirus Screening Are you exhibiting any of the following symptoms?: No Close contact with a COVID-19 positive Pt in past 14-21 Days: No - Vaccine Status Have you recieved a Covid-19 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: 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[employer] - Vaccination Dates Date of 2cond Vaccination (if applicable): 06/2021 - Review of Systems Constitutional: No Symptoms Eyes: No Symptoms Ears, Nose, & Throat: No Symptoms Respiratory: No Symptoms Cardiac: No Symptoms Abdominal/Gastrointestinal: No Symptoms Genitourinary Symptoms: No Symptoms Musculoskeletal: Injury, Joint Redness, Joint Pain Skin: Skin Lesions Neurological: No Symptoms Psychological: No Symptoms Endocrine: No Symptoms Hematologic/Lymphatic: No Symptoms Immunological/Allergic: No Symptoms - Past Medical History Pertinent Past Medical History: No Neurological History: No Pertinent History ENT History: No Pertinent History Cardiac History: No Pertinent History Respiratory History: No Pertinent History Endocrine Medical History: No Pertinent History Musculoskeletal History: No Pertinent History GI Medical History: No Pertinent History History: No Pertinent History Psycho-Social History: Depression Female Reproductive Disorders: No Pertinent History Other Medical History: AB1 - Past Surgical History Past Surgical History: Yes Neuro Surgical History: No Pertinent History Cardiac: No Pertinent History Respiratory: No Pertinent History Gastrointestinal: No Pertinent History Genitourinary: No Pertinent History Musculoskeletal: No Pertinent History Female Surgical History: Dilation & Curettage, Section Other Surgical History: x 1 - Social History Smoking Status: Former smoker How long have you smoked: 3yrs Exposure to second hand smoke: No Drug Use: none Patient Lives Alone: No Significant Family History: no pertinent family hx - Female History Hx Now: Yes (37 weeks) - Nursing Vital Signs Nursing Vital Signs: Initial Vital Signs Temperature 97.6 F 01/31/22 21:44 Pulse Rate 112 H 01/31/22 21:44 Respiratory Rate 18 01/31/22 21:44 Blood Pressure 144/96 01/31/22 21:44 O2 Sat by Pulse Oximetry 100 01/31/22 21:44 Pain Scale Pain Intensity 4 - Physical Exam General Appearance: no apparent distress, alert Eye Exam: PERRL/EOMI Ears, Nose, Throat Exam: normal ENT inspection, pharynx normal Neck Exam: normal inspection, non-tender, supple, full range of motion Respiratory Exam: normal breath sounds, lungs clear Cardiovascular Exam: normal heart sounds, tachycardia Gastrointestinal/Abdomen Exam: soft, normal bowel sounds, other (Gravid uterus), No tenderness Back Exam: normal inspection, normal range of motion Extremity Exam: normal range of motion, swelling (Left lateral ankle with with tenderness, limited range of motion. Abrasion right knee with minimal tenderness and intact range of motion.) Neurologic Exam: alert, 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, cooperative Skin Exam: normal color SpO2 Interpretation: normal SpO2: 100 O2 Delivery: Room Air Ordered Tests: Active Orders 24 hr Category Date Time Status IV Insertion STAT Care 01/31/22 22:20 Active ANKLE (2V) Stat Exams 01/31/22 22:18 Taken OB LIMITED [US] Stat Exams 01/31/22 23:46 Taken CBC W DIFF Stat Lab 01/31/22 22:35 Completed CMP Stat Lab 01/31/22 22:35 Completed CULTURE,URINE Stat Lab 01/31/22 23:01 Received UA W/RFX CULTURE Stat Lab 01/31/22 23:01 Completed Medication Summary Discontinued Medications Generic Name Dose Route Start Last Admin Trade Name Sagrario PRN Reason Stop Dose Admin Acetaminophen 975 mg 01/31/22 22:20 01/31/22 22:37 Acetaminophen 325 Mg Tablet PO 01/31/22 22:21 975 mg STAT ONE Administration Acetaminophen Confirm 01/31/22 22:32 Acetaminophen 325 Mg Tablet Administered 01/31/22 22:33 Dose 975 mg .ROUTE .STK-MED ONE Sodium Chloride 1,000 mls @ 999 mls/hr 01/31/22 22:20 01/31/22 23:37 Sodium Chloride 0.9% 1000 Ml IV 01/31/22 23:20 Infused .Q1H1M STA Infusion Sodium Chloride Confirm 01/31/22 22:32 Sodium Chloride 0.9% 1000 Ml Administered 01/31/22 22:33 Dose 1,000 mls @ ud .ROUTE .STK-MED ONE Lab/Rad Data: Laboratory Result Diagrams 01/31/22 22:35 01/31/22 22:35 Laboratory Results 01/31/22 01/31/22 01/31/22 Range/Units 23:01 22:35 22:35 WBC 10.9 H (4.0-10.5) x10^3/uL RBC 3.71 L (4.1-5.4) x10^6/uL Hgb 9.1 L (12.0-16.0) g/dL Hct 30.4 L (35-47) % MCV 81.9 (78-100) fL MCH 24.5 L (26-32) pg MCHC 29.9 L (32-36) g/dL RDW 19.0 H (11.5-14.0) % Plt Count 305 (150-450) x10^3/uL MPV 10.0 (7.5-11.0) fL Gran % 76.3 H (36.0-66.0) % Immature Gran % (Auto) 0.3 (0.00-0.4) % Nucleat RBC Rel Count 0.0 (0.00-0.1) % Eos # (Auto) 0.18 (0-0.5) x10^3/uL Immature Gran # (Auto) 0.03 (0.00-0.03) x10^3u/L Absolute Lymphs (auto) 1.58 (1.0-4.6) x10^3/uL Absolute Monos (auto) 0.74 (0.0-1.3) x10^3/uL Absolute Nucleated RBC 0.00 (0.00-0.01) x10^3u/L Lymphocytes % 14.5 L (24.0-44.0) % Monocytes % 6.8 (0.0-12.0) % Eosinophils % 1.7 (0.00-5.0) % Basophils % 0.4 (0.0-0.4) % Absolute Granulocytes 8.31 H (1.4-6.9) x10^3/uL Basophils # 0.04 (0-0.4) x10^3/uL Sodium 135 L (137-145) mmol/L Potassium 4.0 (3.5-5.1) mmol/L Chloride 107 (98-107) mmol/L Carbon Dioxide 18 L (22-30) mmol/L Anion Gap 13.2 (5-15) MEQ/L BUN 5 L (7-17) mg/dL Creatinine 0.88 (0.52-1.04) mg/dL Estimated GFR > 60.0 ML/MIN Glucose 92 (74-106) mg/dL Calcium 9.4 (8.4-10.2) mg/dL Total Bilirubin 0.70 (0.2-1.3) mg/dL AST 24 (14-36) U/L ALT 15 (0-35) U/L Alkaline Phosphatase 189 H (38-126) U/L Serum Total Protein 7.2 (6.3-8.2) g/dL Albumin 3.5 (3.5-5.0) g/dL Urinalys Dipstick Clnc MAIN LAB Urine Color DARK YELLOW (YELLOW) Urine Appearance CLOUDY (CLEAR) Urine pH 6.5 (5-6) Ur Specific [place] >=1.030 (1.005-1.025) POC Urine Protein Conf 30 (Negative) Urine Ketones SMALL-15 (NEGATIVE) Urine Nitrite NEGATIVE (NEGATIVE) Urine Bilirubin SMALL (NEGATIVE) Urine Urobilinogen 2 (0-1) mg/dL Urine Leukocytes MODERATE (NEGATIVE) Urine WBC (Auto) 26-50 (0-5) /HPF Urine RBC (Auto) 3-5 (0-2) /HPF U Epithel Cells (Auto) MANY (FEW) /HPF Urine Bacteria (Auto) RARE (NEGATIVE) /HPF Urine RBC NEGATIVE (0-5) John Paul/ul Unidentified Crystals 2-5 (NEGATIVE) /HPF Urine Mucus (Auto) MODERATE (NEGATIVE) /HPF Ur Culture Indicated? YES Urine Glucose NEGATIVE (NEGATIVE) mg/dL - Progress Progress: improved Air Movement: good Progress Note: 01/31/22 22:25 26 years old is evaluated for fall with ankle injury and inability to feel movements after that. She is placed on the monitor and has no contractions so far and good heart tones. Discussed with Dr. Gillespie oncology rep for Dr. [place] patient's primary OB, recommended observation here for 4 hours to see if she has any contractions and if no contraction with good heart tone elyse barrow can be discharged with outpatient follow-up. We will also obtain limited OB ultrasound. Currently patient denies any abdominal pain. 02/01/22 00:16 OB limited ultrasound is obtained and per preliminary report does not have any placental bleed and good movements and heart rate. Patient does not have any contractions. X-rays ankle negative for fracture or dislocation. Probably sprain. We will do Aircast and weightbearing as tolerated. We will continue to monitor for another 2 hours. Blood Culture(s) Obtained: No Antibiotics given: No Discussed with : Other (Dr. iGllespie will be [facility]) Counseled pt/family regarding: lab results, diagnosis, need for follow-up, rad results - Departure Departure Disposition: Home Clinical Impression: Fall, Ankle sprain Qualifiers: Weeks of gestation: 37 weeks Qualified Code(s): Z3A.37 - 37 weeks gestation of Condition: Stable Critical Care Time: No Referrals: DOCTOR,NO FAMILY [Primary Care Provider] - Follow up/PCP as directed NEYDA VIERA [NON-STAFF PHY W/O PRIVILEGES] - Follow up/PCP as directed (Call in the morning for reevaluation) Instructions: Ankle Sprain (DC), Abdominal Trauma in (DC) Additional Instructions: Drink plenty of fluids to keep yourself well-hydrated. Take Tylenol as needed. Follow-up with your OB for reevaluation, call her in the morning. Return to ER if having abdominal pain, decreased movements, vaginal bleeding, back pain etc. Weightbearing on left ankle as tolerated.
[2022-01-31 22:37] LABS: Absolute Neutrophil Ct (ANC) 8.31 x10^3/uL (1.4-6.9); Basophil (Absolute #) 0.04 x10^3/uL (0-0.4); Eosinophil % 1.7 % (0.00-5.0); Eosinophil (Absolute #) 0.18 x10^3/uL (0-0.5); Hematocrit 30.4 % (35-47); Hemoglobin 9.1 g/dL (12.0-16.0); Lymphocyte (Absolute #) 1.58 x10^3/uL (1.0-4.6); Lymphocytes % 14.5 % (24.0-44.0); Mean Cell Volume 81.9 fL (78-100); Mean Corpuscular Hemoglobin 24.5 pg (26-32); Mean Corpuscular Hgb Concent. 29.9 g/dL (32-36); Monocyte (Absolute #) 0.74 x10^3/uL (0.0-1.3); Monocytes % 6.8 % (0.0-12.0); Neutrophil % 76.3 % (36.0-66.0); Platelet Count 305 x10^3/uL (150-450); Red Blood Count 3.71 x10^6/uL (4.1-5.4); White Blood Count 10.9 x10^3/uL (4.0-10.5)
[2022-01-31 22:49] LABS: ALBUMIN 3.5 g/dL (3.5-5.0); ALKALINE PHOSPHATASE 189 U/L (38-126); ANION GAP 13.2 MEQ/L (5-15); BLOOD UREA NITROGEN 5 mg/dL (7-17); CHLORIDE 107 mmol/L (98-107); Calcium 9.4 mg/dL (8.4-10.2); Carbon Dioxide 18 mmol/L (22-30); Creatinine 1 0.88 mg/dL (0.52-1.04); EST GLOMERULAR FILTRATION RATE > 60.0 ML/MIN; Glucose 92 mg/dL (74-106); SGOT/AST 24 U/L (14-36); SGPT/ALT 15 U/L (0-35); SODIUM 135 mmol/L (137-145); Total Protein 7.2 g/dL (6.3-8.2)
[2022-01-31 23:37] LABS: Appearance CLOUDY (CLEAR); Bacteria RARE /HPF (NEGATIVE); Epithelial Cells MANY /HPF (FEW); Mucus MODERATE /HPF (NEGATIVE); WBC 26-50 /HPF (0-5)
[2022-01-31 23:38] LABS: Bilirubin SMALL (NEGATIVE); Dipstick done @ ? MAIN LAB; Glucose NEGATIVE (NEGATIVE); Ketones SMALL-15 (NEGATIVE); Nitrite NEGATIVE (NEGATIVE); Ph 6.5 (5-6); Protein,Urine Dip 30 (Negative); RBC NEGATIVE Ery/ul (0-5); Specific Gravity >=1.030 (1.005-1.025); Urine Cultured Indicated? YES; Urobilinogen 2 mg/dL (0-1)
[2022-02-01] MEDS ORDERED: Sodium Chloride 0.9% 1000 ML 1,000 ML ONE (00:28)
[2022-02-01] MEDS ORDERED: Sodium Chloride 0.9% 1000 ML 1,000 ML IV STA (00:31)
[2022-02-01 02:12] VITALS: BP 164/78; PULSE 88
--- NOTE | 2022-02-01 08:42 | XRAY ---
Indication: Pain following fall. Comparison: None AP/lateral left ankle demonstrates mild soft tissue swelling. No other bony, articular, or soft tissue abnormalities.
--- NOTE | 2022-02-01 08:42 | XRAY ---
Indication: Developing viability following fall. Two-dimensional limited OB ultrasound performed. Comparison: None for this . Single intrauterine currently in cephalic presentation. heart rate 152 BPM. Predominantly fundal placenta without abnormal retroplacental fluid. Comment: Preliminary report was given.
== END 2022-02-01 02:12 | disposition home or self-care (01) ==
LOC: ED 21:44
DX: S93.402A Sprain of unspecified ligament of left ankle, initial encounter (principal); W10.9XXA Fall (on) (from) unspecified stairs and steps, initial encounter; Z33.1 Pregnant state, incidental
CPT/HCPCS: 36000; 36415; 73600; 76815; 80053; 81015; 85025; 87086; 96360; 96376; 99284; A9270-GY

== ENCOUNTER 2022-02-19 12:58 | Emergency (ER) | payer OTHER ==
--- NOTE | 2022-02-19 13:25 | ERPHSYRPT ---
- History of Present Illness Time Seen by Provider: 02/19/22 13:20 Source: patient Exam Limitations: no limitations Patient Subjective Stated Complaint: pt here for abscess to right axilla for 2 days now, had same thing 2 weeks ago Triage Nursing Assessment: pt alert, walked in, resp easy, skin w/d/p, face mask in place, abscess to right axilla Physician History: This is a 26-year-old white female who recently delivered a child and has had recurrent right axillary abscesses in the past. She was seen here on 01/21/2022 with a recurrent right axillary abscess and was treated with Keflex because the patient was 37 weeks . Patient states she is only allergic to ibuprofen. Patient states she is not breast-feeding. In the last few days she noticed enlarging, tender right axillary abscess. She has not had any fevers. She is had no nausea vomiting or diarrhea. Timing/Duration: day(s) (Enlarging over the last few days.) Quality: painful Severity: mild Location: axillary (R) Possible Causes: other (? Hidradenitis suppurativa) Associated Symptoms: denies symptoms Allergies/Adverse Reactions: ibuprofen Adverse Reaction (Intermediate, Verified 02/19/22 13:17) Lightheadedness high fever and pass out Home Medications: Pnv No.103/Folic/Om3s/Fish Oil [ Gummies] 1 each PO DAILY 12/17/21 [History] Hx Tetanus, Diphtheria Vaccination/Date Given: Yes (2 yearss ago) Hx Influenza Vaccination/Date Given: No Hx Pneumococcal Vaccination/Date Given: No Immunizations Up to Date: Yes Travel Risk - International Travel Have you traveled outside of the country in past 3 weeks: No - Coronavirus Screening Are you exhibiting any of the following symptoms?: No Close contact with a COVID-19 positive Pt in past 14-21 Days: No - Vaccine Status Have you recieved a Covid-19 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: 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[employer] - Vaccination Dates Date of 2cond Vaccination (if applicable): 06/2021 - Review of Systems Constitutional: No Symptoms Eyes: No Symptoms Ears, Nose, & Throat: No Symptoms Respiratory: No Symptoms Cardiac: No Symptoms Abdominal/Gastrointestinal: No Symptoms Genitourinary Symptoms: No Symptoms Musculoskeletal: No Symptoms Skin: Other (Abscess right axilla) Neurological: No Symptoms Psychological: No Symptoms Endocrine: No Symptoms Hematologic/Lymphatic: No Symptoms Immunological/Allergic: No Symptoms All Other Systems: Reviewed and Negative - Past Medical History Pertinent Past Medical History: No Neurological History: No Pertinent History ENT History: No Pertinent History Cardiac History: No Pertinent History Respiratory History: No Pertinent History Endocrine Medical History: No Pertinent History Musculoskeletal History: No Pertinent History GI Medical History: No Pertinent History History: No Pertinent History Psycho-Social History: Depression Female Reproductive Disorders: No Pertinent History Other Medical History: AB1 - Past Surgical History Past Surgical History: Yes Neuro Surgical History: No Pertinent History Cardiac: No Pertinent History Respiratory: No Pertinent History Gastrointestinal: No Pertinent History Genitourinary: No Pertinent History Musculoskeletal: No Pertinent History Female Surgical History: Dilation & Curettage, Section Other Surgical History: x 1 - Social History Smoking Status: Never smoker How long have you smoked: 3yrs Exposure to second hand smoke: No Drug Use: none Patient Lives Alone: Yes Significant Family History: no pertinent family hx - Female History Hx Last Menstrual Period: may 2021 Hx Now: No - Nursing Vital Signs Nursing Vital Signs: Pain Scale Pain Intensity 4 - Physical Exam General Appearance: no apparent distress, alert Eye Exam: PERRL/EOMI, eyes nml inspection Ears, Nose, Throat Exam: normal ENT inspection, moist mucous membranes Neck Exam: normal inspection, non-tender, supple, full range of motion Respiratory Exam: airway intact, No chest tenderness, No respiratory distress Gastrointestinal/Abdomen Exam: No tenderness Pelvic Exam: not done Rectal Exam: not done Back Exam: normal inspection, normal range of motion, No CVA tenderness, No vertebral tenderness Extremity Exam: other (Right axillary abscess) Neurologic Exam: alert, 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, cooperative, 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 The redness is localized. It is tender to palpation and ballotable) Lymphatic Exam: No adenopathy SpO2 Interpretation: normal O2 Delivery: Room Air Procedures - Incision and Drainage Time of Procedure: 13:30 Site: Right axilla Blade Size: 11 I & D Procedure: betadine prep, culture obtained Results: moderate amount pus Progress: No complications. Patient Toller procedure well. Wound was covered with 4 x 4 gauze. 1 cm incision was made to drain the abscess. - Course Nursing assessment & vital signs reviewed: Yes Ordered Tests: Active Orders 24 hr Category Date Time Status Wound Care STAT Care 02/19/22 13:39 Ordered CULTURE,WOUND Stat Lab 02/19/22 13:39 Ordered - Progress Progress: improved Counseled pt/family regarding: diagnosis - Departure Departure Disposition: Home Clinical Impression: Hidradenitis suppurativa of right axilla Condition: Stable Critical Care Time: No Referrals: DOCTOR,NO FAMILY [Primary Care Provider] - Follow up/PCP as directed Additional Instructions: Wash the area 1-2 times daily with soap and water. Blot dry use a hairdryer to dry the site. Cover with a bandage after each washing. Do not apply topical ointments or creams to the site. Follow-up with your primary care provider to discuss future management of this hidradenitis suppurativa. Prescriptions: Smz/Tmp Ds Tablet [Bactrim Ds Tablet] 1 udtab PO BID #14 tablet
[2022-02-19 13:50] VITALS: BP 130/89; PULSE 65; O2SAT 98
== END 2022-02-19 13:58 | disposition home or self-care (01) ==
LOC: ED 12:58
DX: L73.2 Hidradenitis suppurativa (principal)
CPT/HCPCS: 10060; 87070; 99282